=== PATIENT | male | born 1965 | race Caucasian/White ===

== ENCOUNTER → 2017-07-30 06:51 | Outpatient (CLI) | payer OTHER, SELFPAY ==
[2017-07-30 08:31] LABS: T4 Free Direct 0.93 ng/dL (0.76-1.46); T4 Total, Thyroxin 7.4 ug/dL (4.5-12.1); Thyroid Stim Hormone (TSH) 0.11 uIU/mL (0.358-3.74)
[2017-07-31 08:51] LABS: T3 Total - Triiodothyronine 1.19 ng/mL (0.6-1.81)
[2017-08-03 09:55] LABS: Testosterone, Free 10.73 ng/dL (5.00-21.00)
[2017-08-03 15:48] LABS: Testosterone, % Free 2.49 % (1.50-4.20); Testosterone, Total 431 ng/dL (264-916)
== END ==
PROVIDERS: Family Provider Chiropractor; PCP Chiropractor; Visit Provider Chiropractor
DX: R53.82 Chronic fatigue, unspecified (principal); E03.9 Hypothyroidism, unspecified
CPT/HCPCS: 36415; 84402; 84403; 84436; 84439; 84443; 84480

== ENCOUNTER → 2018-05-15 11:31 | Outpatient (CLI) | payer OTHER, SELFPAY ==
[2018-05-15 13:31] LABS: AST(SGOT) 33 U/L (15-37); Alanine Aminotransfer ALT/SGPT 66 U/L (16-61); Alkaline Phosphatase 53 U/L (45-117); Bilirubin, Direct 0.23 mg/dL (0.00-0.30); Cholesterol 111 mg/dL (200); Free T3 2.3 pg/mL (2.18-3.98); Globulin 3.8 g/dL (2.2-4.2); High Density Lipoprotein 58 mg/dL; Protein, Total 7.8 g/dL (6.4-8.2); T4 Free Direct 0.84 ng/dL (0.76-1.46); T4 Total, Thyroxin 7.9 ug/dL (4.5-12.1); Triglycerides 56 mg/dL; Very Low Density Lipoprotein 11 mg/dL (5-40)
== END ==
PROVIDERS: Referring Provider Chiropractor; Visit Provider Chiropractor
DX: E03.9 Hypothyroidism, unspecified (principal); K75.81 Nonalcoholic steatohepatitis (NASH)
CPT/HCPCS: 36415; 80061; 80076; 84436; 84439; 84443; 84481

== ENCOUNTER → 2018-08-09 10:29 | Outpatient (CLI) | payer OTHER, SELFPAY ==
[2018-08-09 11:48] LABS: AST(SGOT) 37 U/L (15-37); Alanine Aminotransfer ALT/SGPT 70 U/L (16-61); Albumin, Serum 4.1 g/dL (3.2-5.0); Alkaline Phosphatase 50 U/L (45-117); Bilirubin, Direct 0.26 mg/dL (0.00-0.30); Free T3 5.5 pg/mL (2.18-3.98); Globulin 3.5 g/dL (2.2-4.2); Protein, Total 7.6 g/dL (6.4-8.2); T4 Free Direct 2.12 ng/dL (0.76-1.46); T4 Total, Thyroxin 14.4 ug/dL (4.5-12.1); Thyroid Stim Hormone (TSH) 0.01 uIU/mL (0.358-3.74)
== END ==
PROVIDERS: Family Provider Chiropractor; PCP Chiropractor; Referring Provider Chiropractor; Visit Provider Chiropractor
DX: E03.9 Hypothyroidism, unspecified (principal); K76.0 Fatty (change of) liver, not elsewhere classified
CPT/HCPCS: 36415; 80076; 84436; 84439; 84443; 84481

== ENCOUNTER → 2019-06-10 16:08 | Outpatient (CLI) | payer OTHER, SELFPAY ==
[2019-06-10 16:54] LABS: Potassium 4.3 mmol/L (3.5-5.1); T4 Free Direct 0.91 ng/dL (0.76-1.46); T4 Total, Thyroxin 7.7 ug/dL (4.5-12.1)
== END ==
PROVIDERS: Family Provider Chiropractor; PCP Chiropractor; Visit Provider Chiropractor
DX: E03.9 Hypothyroidism, unspecified (principal); E06.3 Autoimmune thyroiditis
CPT/HCPCS: 36415; 83735; 84132; 84436; 84439; 84443; 84481

== ENCOUNTER → 2019-07-21 10:03 | Outpatient (CLI) | payer OTHER, SELFPAY ==
[2019-07-21 11:40] LABS: Free T3 2.6 pg/mL (2.18-3.98); T4 Total, Thyroxin 15.1 ug/dL (4.5-12.1); Thyroid Stim Hormone (TSH) 0.11 uIU/mL (0.358-3.74)
== END ==
PROVIDERS: PCP Chiropractor; Referring Provider Chiropractor; Visit Provider Chiropractor
DX: E03.9 Hypothyroidism, unspecified (principal)
CPT/HCPCS: 36415; 84436; 84439; 84443; 84481

== ENCOUNTER → 2019-10-14 12:54 | Outpatient (CLI) | payer OTHER, SELFPAY ==
[2019-10-14 15:36] LABS: Absolute Lymphocyte Count 1.41 X10^3/uL (0.83-4.51); Basophil# 0.02 X10^3/uL; Basophil% 0.4 % (0-1); Eosinophil# 0.07 X10^3/uL; Eosinophils% 1.4 % (0-5); Hematocrit 48.8 % (40-54); Hemoglobin 16.5 g/dL (13.0-16.5); Lymphocyte # 1.41 X10^3/ul (4.0); Lymphocyte % 28.4 % (19-41); Mean Corp Hgb Conc 33.8 g/dL (32-36); Mean Corpuscular Hgb 30.4 pg (27.0-32.0); Mean Corpuscular Volume 89.9 fL (80-94); Mean Platelet Vol. 9.2 fl (6.2-12.0); Monocyte# 0.43 X10^3/uL; Monocyte% 8.7 % (0-10); NRBC Flagged by Analyzer 0 % (0-5); Neutrophil # 3.03 X10^3/uL (2.7-7.7); Neutrophil % 60.9 % (47-70); Platelet Count 258 K/mm3 (150-450); RBC Distribution Width CV 11.5 % (11.6-14.6); RBC Distribution Width SD 37.2 fl (35.1-43.9); Red Blood Count 5.43 M/mm3 (4.6-6.2)
[2019-10-14 15:52] LABS: ALB/GLOB Ratio 1.1 RATIO (0.9-2.4); AST(SGOT) 17 U/L (15-37); Alanine Aminotransfer ALT/SGPT 22 U/L (16-61); Alkaline Phosphatase 51 U/L (45-117); Anion Gap 4 (5-15); BUN 8 mg/dL (7-18); BUN/Creat Ratio 9.1 RATIO (10-20); Calcium,Total 8.9 mg/dL (8.5-10.1); Chloride 105 mmol/L (98-107); Cholesterol 118 mg/dL (200); Creatinine, Serum 0.88 mg/dL (0.70-1.30); EST Glomerular Filtration Rate 97 mL/min (>60); Est Glom Filt Rate - Afr Amer 118 mL/min (>60); Free T3 2.3 pg/mL (2.18-3.98); Globulin 3.5 g/dL (2.2-4.2); Glucose 90 mg/dL (74-106); High Density Lipoprotein 82 mg/dL; Potassium 4.1 mmol/L (3.5-5.1); Protein, Total 7.5 g/dL (6.4-8.2); Sodium Level 139 mmol/L (136-145); T4 Free Direct 1.19 ng/dL (0.76-1.46); Thyroid Stim Hormone (TSH) 3.45 uIU/mL (0.358-3.74); Triglycerides 19 mg/dL; Very Low Density Lipoprotein 4 mg/dL (5-40)
[2019-10-16 17:21] LABS: Anti-Thyroglobulin AB < 1.0 IU/mL (0.0-0.9); Thyroglobulin, Serum Qt. 0.7 ng/mL (1.4-29.2); Thyroid Peroxidase AB 20 IU/mL (0-34)
== END ==
PROVIDERS: PCP Chiropractor; Referring Provider Chiropractor; Visit Provider Chiropractor
DX: E03.9 Hypothyroidism, unspecified (principal)
CPT/HCPCS: 36415; 80053; 80061; 84432; 84436; 84439; 84443; 84481; 85025; 86376; 86800

== ENCOUNTER 2024-05-16 15:15 | Emergency (ER) | payer OTHER, SELFPAY ==
[2024-05-16] VITALS (14 sets, daily range): BP systolic 122–151; BP diastolic 55–78; PULSE 81–112; RESP 12–18; TEMP 32.2–37.3; O2SAT 95–100; BMI 28.8
--- NOTE | 2024-05-16 15:34 | EKG12_ITS ---
Test Reason : ABD PAIN Blood Pressure : */* mmHG Vent. Rate : 96 BPM Atrial Rate : 96 BPM P-R Int : 134 ms QRS Dur : 86 ms QT Int : 358 ms P-R-T Axes : 55 22 52 degrees QTcB Int : 452 ms Normal sinus rhythm Nonspecific ST abnormality Abnormal ECG Confirmed by Ezio Willis ([id number]), editor publications VLADISLAV JOHN ([id number]) on 05/18/2024 11:37:07 AM Referred By: Antonio Tabor Confirmed By: Ezio Willis
--- NOTE | 2024-05-16 15:34 | CT_ITS ---
EXAM: CT Abdomen And Pelvis W/ Contrast Injection HISTORY: abd pain, gi bleed TECHNIQUE: Routine protocol CT abdomen pelvis. IV Contrast: IV 100mL Isovue-370 . Oral Contrast: without. Sagittal and coronal images were reconstructed. RADIATION DOSAGE (If Supplied By Facility): CTDIvol = ( 12.22 ) mGy, DLP = ( 961.21 ) mGycm Individualized dose optimization techniques were used for this CT. COMPARISON: None. LIMITATIONS: None. FINDINGS: LOWER CHEST: Unremarkable. LIVER: Fatty infiltration. GALLBLADDER/BILE DUCTS: Unremarkable. PANCREAS: Unremarkable. SPLEEN: Unremarkable. ADRENAL GLANDS: Unremarkable. KIDNEYS / URETERS: Several small calculi in both kidneys. No hydronephrosis. BOWEL / MESENTERY: Mild wall thickening 1st-2nd portion of the duodenum with adjacent stranding. There is a defect in the duodenal wall posteriorly duodenal bulb with localized collection, contains fluid and air measures 2.7 x 2.2 cm likely large ulcer, contained perforation difficult to exclude. Scattered diverticula in the colon. No bowel obstruction. APPENDIX: Identified and normal. No evidence of acute appendicitis. PERITONEUM: No free air. Small amount of free fluid in the pelvis. VESSELS: Abdominal aorta is normal caliber. RETROPERITONEUM: Unremarkable. REPRODUCTIVE ORGANS: Unremarkable. BLADDER: Unremarkable. ABDOMINAL WALL: Unremarkable. BONES: No acute abnormality. OTHER: None. CT/Abdomen/Pelvis W IV Cont ONLY IMPRESSION: Duodenal wall thickening with likely large duodenal ulcer at the posterior bulb versus contained perforation. Adjacent stranding. No pneumoperitoneum. Small amount of free fluid. Electronically Signed: Tabatha Martinez MD at 17:14 EST ,
--- NOTE | 2024-05-16 15:37 | ED.VIS.GI ---
HPI HPI - GI History of Present Illness Chief Complaint: Abd Pain Informant: patient and spouse/S.O. Narrative Narrative: Waxing waning mid abdominal pain for 3-4 days. 3 days ago noted diarrhea with black stools denies tarry stools. Prior to that had some vomiting that was not coffee-ground or any bright red blood. A week ago had dental procedure had regiment of being on scheduled ibuprofen for pain control. He had to stems placed right lower mandibular. Also on regimen of Tylenol with hydrocodone. Shortly after that noted the black stools. More abdominal pain. He has stopped the ibuprofen. In addition reported over the past month intermittent urine felt like he was passing stones. Has not been diagnosed with kidney stones. But he has had multiple episodes with vincent when he urinates. Last time 5 to 6 days ago. Denies dysuria. Denies fever or chills. No history of colonoscopy or endoscopy in the past. Has had Cologuard testing in the past. Spouse has been noticing changes in skin color. He has been noticing lightheaded symptoms over last couple days. No syncopal episodes. Decreased appetite. Has not had a bowel movement in 1 and half days. Prior similar symptoms: No PFSH PFSH Medical History (Updated 05/16/24 @ 20:[address] Antonio Tabor, DO) Nephrolithiasis Home Medications ?Medication ?Instructions ?Recorded ?Last Taken ?Type NK 05/16/24 Unknown History Allergy/AdvReac Type Severity Reaction Status Date / Time amoxicillin (From Augmentin) Allergy Vomiting Verified 05/16/24 15:19 azithromycin Allergy Abd Verified 05/16/24 15:19 cramps/diarrhea clavulanic acid (From Allergy Vomiting Verified 05/16/24 15:19 Augmentin) Family History (Updated 05/16/24 @ 17:[address] Eunice Jimenez MD) Mother No problems noted. Father No problems noted. Family History other Surgical History (Updated 05/16/24 @ 17:[address] Eunice Jimenez MD) History of dental surgery Social History (Updated 05/16/24 @ 17:[address] Eunice Jimenez MD) household members: spouse Smoking Status: Never smoker alcohol intake: never substance use type: does not use ROS ROS ED Constitutional Constitutional ED: Denies chills, fever(s) or sweats Eyes Eyes: Denies change in vision ENT ENT ED: Denies dysphagia or sore throat Cardiovascular Cardiovascular: Denies chest pain, leg edema, palpitations or racing heartbeat Respiratory/Chest Respiratory/Chest: Denies cough, dyspnea or dyspnea on exertion Gastrointestinal Gastrointestinal: Reports other Details: Loose black stools. No bloody stools. ; Denies abdominal pain, diarrhea, nausea or vomiting Genitourinary Genitourinary ED: Denies dysuria, hematuria or urinary frequency Musculoskeletal Musculoskeletal: Denies back pain, extremity pain or neck pain Integumentary Denies rash or wounds Neurologic Neurologic: Denies headache(s), paresthesias or weakness EXAM Physical Exam Const Vital Signs: 05/16/24 15:19 05/16/24 16:22 05/16/24 16:49 Temperature 97.8 F Temperature Source Temporal Pulse Rate 103 H 97 Pulse Rate [Lying] 90 Pulse Rate [Sitting (for 1 minute prior to obtaining)] 94 Pulse Rate [Standing (for 1 minute prior to obtaining)] 112 H Respiratory Rate 18 16 Blood Pressure 122/69 H 129/62 H Blood Pressure [Lying] 140/75 H Blood Pressure [Sitting (for 1 minute prior to obtaining)] 143/67 H Blood Pressure [Standing (for 1 minute prior to obtaining)] 129/62 H Blood Pressure Mean 86 84 Blood Pressure Mean [Lying] 96 Blood Pressure Mean [Sitting (for 1 minute prior to obtaining)] 92 Blood Pressure Mean [Standing (for 1 minute prior to obtaining)] 84 Blood Pressure Source Blood Pressure Position Blood Pressure Location Pulse Ox 99 97 Oxygen Delivery Method Room Air Room Air 05/16/24 17:29 05/16/24 17:40 05/16/24 17:55 Temperature 97.8 F 99.1 F 99 F Temperature Source Oral Oral Pulse Rate 99 94 92 Pulse Rate [Lying] Pulse Rate [Sitting (for 1 minute prior to obtaining)] Pulse Rate [Standing (for 1 minute prior to obtaining)] Respiratory Rate 16 16 12 Blood Pressure 139/73 H 139/73 H 139/73 H Blood Pressure [Lying] Blood Pressure [Sitting (for 1 minute prior to obtaining)] Blood Pressure [Standing (for 1 minute prior to obtaining)] Blood Pressure Mean 95 95 95 Blood Pressure Mean [Lying] Blood Pressure Mean [Sitting (for 1 minute prior to obtaining)] Blood Pressure Mean [Standing (for 1 minute prior to obtaining)] Blood Pressure Source Monitor Monitor Blood Pressure Position Semi-Fowlers Semi-Fowlers Blood Pressure Location Right Arm Right Arm Pulse Ox 96 95 100 Oxygen Delivery Method Room Air Room Air 05/16/24 18:12 05/16/24 18:20 05/16/24 18:35 Temperature 99 F 99 F 99.1 F Temperature Source Oral Oral Oral Pulse Rate 90 92 85 Pulse Rate [Lying] Pulse Rate [Sitting (for 1 minute prior to obtaining)] Pulse Rate [Standing (for 1 minute prior to obtaining)] Respiratory Rate 12 16 12 Blood Pressure 133/78 H 139/73 H 133/78 H Blood Pressure [Lying] Blood Pressure [Sitting (for 1 minute prior to obtaining)] Blood Pressure [Standing (for 1 minute prior to obtaining)] Blood Pressure Mean 96 95 96 Blood Pressure Mean [Lying] Blood Pressure Mean [Sitting (for 1 minute prior to obtaining)] Blood Pressure Mean [Standing (for 1 minute prior to obtaining)] Blood Pressure Source Monitor Monitor Monitor Blood Pressure Position Semi-Fowlers Semi-Fowlers Semi-Fowlers Blood Pressure Location Right Arm Right Arm Right Arm Pulse Ox 100 100 100 Oxygen Delivery Method Room Air Room Air Room Air 05/16/24 19:00 05/16/24 19:46 05/16/24 19:56 Temperature 99 F 99 F 89.9 F L Temperature Source Oral Oral Oral Pulse Rate 81 84 98 Pulse Rate [Lying] Pulse Rate [Sitting (for 1 minute prior to obtaining)] Pulse Rate [Standing (for 1 minute prior to obtaining)] Respiratory Rate 16 16 16 Blood Pressure 134/76 H 134/77 H 127/66 H Blood Pressure [Lying] Blood Pressure [Sitting (for 1 minute prior to obtaining)] Blood Pressure [Standing (for 1 minute prior to obtaining)] Blood Pressure Mean 95 96 86 Blood Pressure Mean [Lying] Blood Pressure Mean [Sitting (for 1 minute prior to obtaining)] Blood Pressure Mean [Standing (for 1 minute prior to obtaining)] Blood Pressure Source Monitor Monitor Blood Pressure Position Semi-Fowlers Supine Blood Pressure Location Right Arm Right Arm Pulse Ox 100 100 100 Oxygen Delivery Method Room Air Room Air Room Air 05/16/24 20:09 05/16/24 20:52 Temperature 99.1 F 99.1 F Temperature Source Oral Pulse Rate 87 82 Pulse Rate [Lying] Pulse Rate [Sitting (for 1 minute prior to obtaining)] Pulse Rate [Standing (for 1 minute prior to obtaining)] Respiratory Rate 16 18 Blood Pressure 151/55 H 127/66 H Blood Pressure [Lying] Blood Pressure [Sitting (for 1 minute prior to obtaining)] Blood Pressure [Standing (for 1 minute prior to obtaining)] Blood Pressure Mean 87 86 Blood Pressure Mean [Lying] Blood Pressure Mean [Sitting (for 1 minute prior to obtaining)] Blood Pressure Mean [Standing (for 1 minute prior to obtaining)] Blood Pressure Source Blood Pressure Position Blood Pressure Location Pulse Ox 100 99 Oxygen Delivery Method Room Air Positive well nourished and well developed General Appearance ED: well developed, NAD and pallor HEENT Reports moist mucous membranes normocephalic and atraumatic Eyes EOMs intact bilaterally and conjunctivae normal General Eye ED: Yes pale conjunctiva Neck no lymphadenopathy and supple General: Negative for tenderness Chest Wall Chest: Negative for tenderness Resp normal respiratory effort and normal air movement Effort and Inspection: symmetric chest movement; Negative for respiratory distress Cardio regular rhythm and no murmurs Rate: tachycardic Peripheral Pulses: pulses 2+ throughout GI normal to inspection, nondistended, normoactive bowel sounds GI Narrative: Negative Johnson's or McBurney's tenderness. Mild tenderness mid abdominal. Declines rectal exam. Palpation: Negative for guarding or rebound tenderness present Back/Spine no CVA tenderness and no thoracic nor lumbar tenderness Extremity normal to inspection General Extremety ED: Negative for edema or tenderness General Extremity: Negative for edema Neuro oriented x3 and no sensory deficits noted Sensorium / Orientation: awake and alert Skin General Skin Exam: pallor MDM MDM MDM Narrative Medical decision making narrative: Interventions / MDM: Differential diagnosis: Symptomatic anemia, upper GI bleed, duodenal ulcer with possible perforation Diagnosis considered but do not suspect: N/A My EKG interpretation: Sinus rhythm 96, no ST or T wave changes. QTc 452. Imaging independently reviewed and interpreted by myself: CT abdomen pelvis: Nephrolithiasis, large duodenal ulcer, possible contained perforation. External documents reviewed: N/A Test considered but not ordered:N/A ED course: Blood pressure stable slight tachycardia on arrival. Clinically concerns for severe anemia with symptoms of lightheadedness, will check EKG, labs with coags and type and screen. CT abdomen pelvis with contrast. IV Protonix ordered. Will plan on admission. 1630: Orthostatic positive from sitting to standing blood pressure and heart rate positive. Blood pressure maintained at 120. Hemoglobin trend 4.4. I sent for iron studies. I ordered for 3 units of blood to be transfused. Risk and benefits discussed with the patient and consent will be obtained. I spoke with minilab operator Dr. Avelar, agrees with workup this time. Plan for Protonix 40 mg every 6. He will need to have bowel prep. Plan for endoscopy tomorrow. 1655: CT scan on my review bilateral nephrolithiasis nonobstructing. No abdominal masses, no hyperdense fluid for concerns of any active bleed. Awaiting final read by radiology. Will discuss with hospitalist for admission. 1735: Final read from radiology concerns for a large duodenal ulcer 2.7 cm in size, they could not rule out contained per however there is stranding in the area. Hospitalist Dr. Jimenez was in the ED discussed the findings. We rediscussed with gastroenterology Dr. Avelar, also discussed with on-call surgeon Dr. Esposito. Per surgery due to duodenal location, discussed if symptoms progress into a perforation, he is unable to manage this surgically here. Therefore recommended transfer to capable facility. This was discussed with patient and spouse. Will work on transfer. Allergies to be amoxicillin part causing vomiting, cefotetan IV antibiotic ordered for coverage. Iron study results, ferritin of 5, TIBC 345, iron of 34. Folate 13. 1750: I discussed with [facility] transfer line with critical care team. Updated on the findings. They will reach out with their critical care team and surgery team to make sure that able to manage that there also. They will call back. 1810: [facility] after speaking with her surgeon also recommends tertiary center of [facility]. I spoke with transfer line and [facility], they will relay to their team and will call back. 1900: Brief callback from the transfer center who spoke with your general surgeon Dr. Michelle, would like patient transferred to the ED for surgical evaluation and disposition from there. I spoke with the ED physician Dr. Garza, discussed findings and concerns. Discussed blood is running blood pressure currently stable. Will transfer to the ED for further evaluation and management. Image studies will be pushed up to their facility. Patient and family updated. Re-evaluation: stable Disposition discussed with patient/family/significant other: Patient and family Case discussed with consulting clinician: Gastroenterology, hospitalist, general surgery, [facility] ED physician This note was generated with [email or web address] dictation software. It may contain incorrect words, spelling, and punctuation that were not noted in checking the note before signing. Lab Data Attestation: I reviewed the patient's lab results. Labs: Laboratory Results - last 24 hr 05/16/24 05/16/24 05/16/24 15:37 16:25 20:26 WBC 11.5 H RBC 1.50 L Hgb 4.4 L* Hct 13.8 L MCV 92.0 MCH 29.3 MCHC 31.9 L RDW Std Deviation 41.1 RDW Coeff of Gerry 12.1 Plt Count 427 MPV 8.4 Immature Gran % (Auto) 0.600 Neut % (Auto) 79.6 H Lymph % (Auto) 10.3 L [place] % (Auto) 9.1 Eos % (Auto) 0.3 Baso % (Auto) 0.1 Absolute Neuts (auto) 9.2 H Absolute Lymphs (auto) 1.19 Nucleated RBC % 0 Diff Path Review May foll PT 13.7 INR 1.1 APTT 29.3 Sodium 140 Potassium 3.4 L Chloride 108 H Carbon Dioxide 26.0 Anion Gap 7 BUN 9 Creatinine 0.78 Estim Creat Clear Calc 111.39 Est GFR (MDRD) Af Amer 131 Est GFR (MDRD) Non-Af 108 BUN/Creatinine Ratio 11.5 Glucose 127 H Calcium 8.3 L Iron 34 L TIBC 345 Iron Saturation 9.9 L Ferritin 5 L Total Bilirubin 0.30 AST 14 L ALT 15 L Alkaline Phosphatase 51 Total Protein 6.2 L Albumin 3.0 L Globulin 3.2 Albumin/Globulin Ratio 0.9 Lipase 48 Folate 13.20 Urine Color Yellow Urine Clarity Clear Urine pH 7.0 Ur Specific [place] 1.010 Urine Protein 15 H Urine Glucose (UA) Normal Urine Ketones 5 H Urine Occult Blood Negative Urine Nitrite Negative Urine Bilirubin Negative Urine Urobilinogen Normal Ur Leukocyte Esterase Negative Urine RBC 0 SEEN Urine WBC 0-5 SEEN Ur Squamous Epith Cells 0 SEEN Urine Bacteria 0 SEEN Urine Mucus 0 SEEN Blood Type O POSITIVE Antibody Screen NEGATIVE Crossmatch See Detail Radiography Diagnostic Testing: Clinical Impression(s) from Imaging Studies Abdomen/Pelvis CT 05/16/24 15:34 IMPRESSION: Duodenal wall thickening with likely large duodenal ulcer at the posterior bulb versus contained perforation. Adjacent stranding. No pneumoperitoneum. Small amount of free fluid. Electronically Signed: Tabatha Martinez MD at 17:14 EST , Critical Care Time Critical Care Time: Yes Critical care time (excluding procedures): 30-74 minutes, Discussing w/Patient &/or Family/Jailkeeper, Discussing w/Consultants, Arranging Admission or Transfer, Performing Direct Patient Care at Bedside and - (45 minutes) Discharge Plan Triage Chief Complaint: Abd Pain Other Complaint: Nausea/Vomiting/Diarrhea ED Provider: Antonio Tabor Dx/Rx/DC Orders Clinical Impression: Severe anemia, Symptomatic anemia, Upper GI bleed, Bilateral nephrolithiasis, Duodenal ulcer, Atrial fibrillation, chronic Prescriptions: No Action NK Primary Care Provider: Leticia Brito Referrals: Leticia Brito DC [Primary Care Provider] - Print Language: Citizen Of [place] Disposition Disposition: DC/Tx to Another Type of HCF Discharge Location: [facility] Discharge Date/Time: 05/16/24 21:44
[2024-05-16 15:57] LABS: Absolute Lymphocyte Count 1.19 X10^3/uL (0.83-4.51); Absolute Neutrophil Count 9.2 X10^3/uL (2.0-7.7); Basophil# 0.01 X10^3/uL; Basophil% 0.1 % (0-1); Eosinophil# 0.04 X10^3/uL; Eosinophils% 0.3 % (0-5); Hematocrit 13.8 % (40-54); Lymphocyte # 1.19 X10^3/ul (0.83-4.51); Lymphocyte % 10.3 % (19-41); Mean Corp Hgb Conc 31.9 g/dL (32-36); Mean Corpuscular Hgb 29.3 pg (27.0-32.0); Mean Platelet Vol. 8.4 fl (6.2-12.0); Monocyte# 1.05 X10^3/uL; Monocyte% 9.1 % (0-10); NRBC Flagged by Analyzer 0 % (0-5); Neutrophil # 9.18 X10^3/uL (2.7-7.7); Neutrophil % 79.6 % (47-70); POSITIVE COUNT YES; Platelet Count 427 K/mm3 (150-450); RBC Distribution Width CV 12.1 % (11.6-14.6); RBC Distribution Width SD 41.1 fl (35.1-43.9); White Blood Count 11.5 K/mm3 (4.4-11.0)
[2024-05-16] MEDS: Pantoprazole Sodium 80 MG in 0.9% Normal Saline (50mL Bag) 15 ML 420 MG IV BOLUS (15:59)
[2024-05-16] MEDS: Ondansetron 4 MG/2 ML Vial IV (16:05)
[2024-05-16 16:09] LABS: International Normalized Ratio 1.1; Prothrombin Time (Protime)PT. 13.7 SECONDS (11.7-14.9)
[2024-05-16 16:10] LABS: Partial Thromboplast Time 29.3 Seconds (24.1-36.2)
[2024-05-16 16:12] LABS: Differential Indicated SCAN CRITERIA MET; Hemoglobin 4.4 g/dL (13.0-16.5)
[2024-05-16 16:22] LABS: ALB/GLOB Ratio 0.9 RATIO (0.9-2.4); AST(SGOT) 14 U/L (15-37); Alanine Aminotransfer ALT/SGPT 15 U/L (16-61); Alkaline Phosphatase 51 U/L (45-117); Anion Gap 7 (5-15); BUN 9 mg/dL (7-18); BUN/Creat Ratio 11.5 RATIO (10-20); Calcium,Total 8.3 mg/dL (8.5-10.1); Chloride 108 mmol/L (98-107); Creatinine, Serum 0.78 mg/dL (0.70-1.30); EST Glomerular Filtration Rate 108 mL/min (>60); Est Glom Filt Rate - Afr Amer 131 mL/min (>60); Estimated Creatinine Clearance 111.39 ml/min; Globulin 3.2 g/dL (2.2-4.2); Glucose 127 mg/dL (74-106); Lipase 48 U/L (13-75); Potassium 3.4 mmol/L (3.5-5.1); Protein, Total 6.2 g/dL (6.4-8.2); Sodium Level 140 mmol/L (136-145)
[2024-05-16] MEDS: fentaNYL 100 MCG/2 ML Ampul 50 MCG IV (16:53)
--- NOTE | 2024-05-16 17:05 | PCM.HP.STD ---
HPI - General General Date of Admission: 05/16/24 Date of Service: 05/16/24 Chief Complaint: Abdominal pain, N/V, black stools, recent heavy NSAID usage. HPI Narrative The patient is a 59 y/o M w/ no marked PMHx not on any medications routinely with no PCP he notes however presents to the [facility] ED on 05/16/24 with history of ongoing mid abdominal discomfort which has been waxing and waning over the last 3 to 4 days with onset of diarrhea 3 days ago noted to be black in appearance but not specifically tarry with history of a dental procedure a week ago and following this had been on a scheduled regimen of ibuprofen (reports possibly 500 mg q 4-6 hours x 4 days until stopped) as well as Tylenol and hydrocodone probably eventual ED evaluation. He did states when he started having black stools he did stop the ibuprofen. He also notes a history of multiple episodes where he felt as though he passed small kidney stones with the last was 5 to 6 days prior to current presentation but no associated dysuria or fevers or chills. Patient spouse has been concerned about abnormal skin color change. He also has reported some lightheadedness over the last couple days and decreased appetite. He notes that his last bowel movement has been 1.5 days prior. He describes the pain in his abdomen as if something is trying to clot out his insides. He notes that he is only had a handful of applesauce pouches over the last 2 days. Workup in the ED included T97.8, heart rate 103, BP 122/69, respiratory rate 18, 99% on room air, orthostatics with a change in heart rate from 90-1 12 and blood pressure change from 140-129 with similar diastolics, CBC with WBC 11.5, hemoglobin 4.4, MCV 92, platelet 427 with left shift, unremarkable coags, CMP with potassium 3.4, chloride 108, glucose 127, calcium 8.3, AST/ALT 14/15, total bilirubin 0.30 otherwise hepatic profile not marked appearing, lipase 48, type and cross x 3 unit PRBC initiated in the ED, EKG with sinus rhythm with no acute evidence of ischemia, QTc 452, CT abdomen pelvis with IV contrast pending upon requested evaluation of patient's. In the ED patient administered Zofran 4 mg IV x 1 as well as Protonix 80 mg IV bolus x 1. ED physician also ordered ferritin, folic acid, iron, TIBC, stool occult, vitamin B12. Dr. Avelar Gastroenterology discussed case with ED physician and requested lower GI prep. Discussed with ED physician that would await CT scan results to assure no acute tertiary facility needs but otherwise patient will require ICU admission based on hemoglobin level. Also requested that ED physician discussed alcohol use with patient and if he is an alcoholic that he be administered prophylactic antibiotic therapy in the setting of GI bleed as well. [facility] Medical History (Updated 05/16/24 @ 17:[address] Eunice Jimenez MD) Nephrolithiasis Home Medications ?Medication ?Instructions ?Recorded ?Last Taken ?Type NK 05/16/24 Unknown History Allergy/AdvReac Type Severity Reaction Status Date / Time amoxicillin (From Augmentin) Allergy Vomiting Verified 05/16/24 15:19 azithromycin Allergy Abd Verified 05/16/24 15:19 cramps/diarrhea clavulanic acid (From Allergy Vomiting Verified 05/16/24 15:19 Augmentin) Family History (Updated 05/16/24 @ 17:[address] Eunice Jimenez MD) Mother No problems noted. Father No problems noted. other (Denies any marked maternal or paternal family history, notes they passed of old age only.) Surgical History (Updated 05/16/24 @ 17:[address] Eunice Jimenez MD) History of dental surgery Social History (Updated 05/16/24 @ 17:[address] Eunice Jimenez MD) household members: spouse Smoking Status: Never smoker alcohol intake: never substance use type: does not use ROS ROS Narrative Admission Review of Systems: CONSTITUTIONAL: No weight loss, fever, chills, + weakness or fatigue. HEENT: + LH/dizziness. Eyes: No visual loss, blurred vision, double vision or yellow sclerae. Ears, Nose, Throat: No hearing loss, sneezing, congestion, runny nose or sore throat. SKIN: No rash or itching, lesions, wounds except + pale color. CARDIOVASCULAR: No chest pain, chest pressure or chest discomfort, palpitations, edema, orthopnea, syncopal events. RESPIRATORY: + Dyspnea with exertion. No cough or sputum, wheezing, hemoptysis. GASTROINTESTINAL: + Epigastric discomfort/abdominal pain, nausea, emesis, loose stools, stools black in appearance. No BRBPR. GENITOURINARY: + Reports occasional past possible calculi. No dysuria, frequency, urgency or retention. NEUROLOGICAL: No headache, dizziness, syncope, paralysis, ataxia, numbness or tingling in the extremities, focal weakness, change in bowel or bladder control, seizure. MUSCULOSKELETAL: + muscle, back pain, joint pain or stiffness. HEMATOLOGIC: + Acute anemia noted, describes evidence of bleeding. LYMPHATICS: No enlarged nodes. No history of splenectomy. PSYCHIATRIC: No history of depression or anxiety. ENDOCRINOLOGIC: No reports of sweating, cold or heat intolerance. No polyuria or polydipsia. ALLERGIES: No history of asthma, hives, eczema or rhinitis. Vital Signs Vital Signs Vital Signs: 05/16/24 15:19 05/16/24 16:22 05/16/24 16:49 Temperature 97.8 F Temperature Source Temporal Pulse Rate 103 H 97 Pulse Rate [Lying] 90 Pulse Rate [Sitting (for 1 minute prior to obtaining)] 94 Pulse Rate [Standing (for 1 minute prior to obtaining)] 112 H Respiratory Rate 18 16 Blood Pressure 122/69 H 129/62 H Blood Pressure [Lying] 140/75 H Blood Pressure [Sitting (for 1 minute prior to obtaining)] 143/67 H Blood Pressure [Standing (for 1 minute prior to obtaining)] 129/62 H Blood Pressure Mean 86 84 Blood Pressure Mean [Lying] 96 Blood Pressure Mean [Sitting (for 1 minute prior to obtaining)] 92 Blood Pressure Mean [Standing (for 1 minute prior to obtaining)] 84 Pulse Ox 99 97 Oxygen Delivery Method Room Air Room Air Weight Weight: 189 lb 3.2 oz Body Mass Index (BMI) 28.8 Physical Exam Narrative Physical Examination: General: Awake, alert, oriented x 3 and cooperative, seated upright in the ED bed, pale, evident discomfort, notes he feels as though still his abdomen is being clot out. Skin: Pale color, normal turgor, no icterus, no cyanosis. HEENT: AT/NC, EOMI, PERRLA, mildly dry MM, no carotid bruits or JVD noted. Lungs: CTA bilaterally, moderate effort, mild decrease BL bases, no rales, ronchi or wheezing. Heart: Mildly tachycardic with regular rhythm; no gallop, rub audible. Abdomen: Soft, discomfort to the epigastric and bilateral upper quadrant palpation with no rebound or guarding, nondistended, hyperactive BS, no appreciated HSM. Extremities: No cyanosis, clubbing, or edema. Neurological: Patient awake, alert, oriented as noted, cognitive function intact; pupils equally reactive to light and accommodation, cranial nerves grossly normal, moving all 4 extremities, no focal deficits, strength severely globally decreased secondary to acute presentation complaints Psychiatric: Affect appears flat, fatigued, no acute evidence of depressive or anxiety feelings. Results Lab / Micro Data 05/16/24 15:37 05/16/24 15:37 Labs: Laboratory Results - last 24 hr 05/16/24 15:37: WBC 11.5 H, RBC 1.50 L, Hgb 4.4 L*, Hct 13.8 L, MCV 92.0, MCH 29.3, MCHC 31.9 L, RDW Std Deviation 41.1, RDW Coeff of Gerry 12.1, Plt Count 427, MPV 8.4, Immature Gran % (Auto) 0.600, Neut % (Auto) 79.6 H, Lymph % (Auto) 10.3 L, [place] % (Auto) 9.1, Eos % (Auto) 0.3, Baso % (Auto) 0.1, Absolute Neuts (auto) 9.2 H, Absolute Lymphs (auto) 1.19, Nucleated RBC % 0, PT 13.7, INR 1.1, APTT 29.3, Sodium 140, Potassium 3.4 L, Chloride 108 H, Carbon Dioxide 26.0, Anion Gap 7, BUN 9, Creatinine 0.78, Estim Creat Clear Calc 111.39, Est GFR (MDRD) Af Amer 131, Est GFR (MDRD) Non-Af 108, BUN/Creatinine Ratio 11.5, Glucose 127 H, Calcium 8.3 L, Total Bilirubin 0.30, AST 14 L, ALT 15 L, Alkaline Phosphatase 51, Total Protein 6.2 L, Albumin 3.0 L, Globulin 3.2, Albumin/Globulin Ratio 0.9, Lipase 48, Blood Type O POSITIVE, Antibody Screen NEGATIVE Assessment & Plan Assessment/Plan (1) GI bleed: PLAN: Plan The patient is a 59 y/o M w/ no marked PMHx not on any medications routinely with no PCP he notes however presents to the [facility] ED on 05/16/24 with history of ongoing mid abdominal discomfort which has been waxing and waning over the last 3 to 4 days with onset of diarrhea 3 days ago noted to be black in appearance but not specifically tarry with history of a dental procedure a week ago and following this had been on a scheduled regimen of ibuprofen (reports possibly 500 mg q 4-6 hours x 4 days until stopped) as well as Tylenol and hydrocodone probably eventual ED evaluation. #1. Acute GI Bleed w/ resultant Acute Blood Loss Anemia with LH/Dizziness following recent significant serial ingestion of NSAIDs following dental procedure for pain treatment: Given hemoglobin level per facility protocol if CT abdomen pelvis does not demonstrate any acute findings that would necessitate transfer to a tertiary facility would plan to admit to the ICU, would plan to consult pathology laboratory director and consult gastroenterology, n.p.o. status, continue PRBC type and cross order initiated per ED physician and will also maintain on IVFs, will continue to obtain serial H+H assessment, will maintain on continuous Protonix drip, maintain on fall precautions. #2. Hypokalemia: Admission K+ 3.4, magnesium level requested, supplementation given, repeat level in AM. #3. Hyperglycemia, mild: Admission glucose 127, suspect likely stress response, if repeat levels are concerning will obtain hemoglobin A1c at that time. #4. Questionable nephrolithiasis: Patient reports history of passing stones, describes as small vincent when he urinates, given he is not any severe pain we will continue to monitor only at this time especially given #1. #5. DVT prophylaxis: SCDs. #6. CODE STATUS: Full code. Charges/Coding Visit Charges Inpatient E&M: 35269 Init Hosp L3
[2024-05-16 17:22] LABS: Ferritin 5 ng/mL (26-388); Iron 34 ug/dL (65-175); Iron Binding Capacity,Total 345 ug/dL (250-450); PERCENT IRON SATURATION 9.9 % (15.0-55.0)
[2024-05-16] MEDS: Morphine 4 MG/ML Syringe IV (17:52)
[2024-05-16] MEDS: Cefotetan 2 GM in 0.9% Normal Saline (100mL MB+) 100 ML IV (17:52)
--- NOTE | 2024-05-16 20:11 | NURSING ---
Report called to Onel Mendoza
[2024-05-16 20:32] LABS: Bacteria 0 SEEN /hpf (None Seen); Mucous, Urine 0 SEEN /hpf (<or=2+); Red Blood Cells-Urine 0 SEEN /hpf (0-5); Squamous Epithelial Cells - UA 0 SEEN /hpf (0-5)
[2024-05-16 20:33] LABS: Color, Urine Yellow (Yellow); Glucose, Dipstick Normal (Normal); Ketone-Dipstick 5 mg/dl (Negative); Leukocyte Esterase-Dipstick Negative /ul (Negative); Nitrite-Dipstick Negative (Negative); Occult Blood-Urine Negative /ul (Negative); Protein-Dipstick 15 mg/dl (Negative); Urine Bilirubin Dipstick Negative (Negative); Urine Clarity Clear (Clear); Urine Urobilinogen Normal (Normal)
[2024-05-16 20:40] LABS: White Blood Cells 0-5 SEEN /hpf (0-5)
--- NOTE | 2024-05-16 21:05 | NURSING ---
Physicians transport team here. Report given.
[2024-05-18 13:46] LABS: Vitamin B12 619 pg/mL (211-911)
[2024-05-18 13:52] LABS: Pathologist Review Reviewed
== END 2024-05-16 21:44 | disposition short-term general hospital (02) ==
PROVIDERS: Emergency Provider Emergency Medicine; PCP Chiropractor; Referring Provider Emergency Medicine; Visit Provider Emergency Medicine
DX: K26.4 Chronic or unspecified duodenal ulcer with hemorrhage (principal); I48.20 Chronic atrial fibrillation, unspecified; D62 Acute posthemorrhagic anemia; N20.0 Calculus of kidney; R19.7 Diarrhea, unspecified; R11.2 Nausea with vomiting, unspecified; E87.6 Hypokalemia; R73.9 Hyperglycemia, unspecified
CPT/HCPCS: 36430; 74177; 80053; 81001; 82607; 82728; 82746; 83540; 83550; 83690; 85025; 85610; 85730; 86850; 86900; 86901; 86920; 93005; 96365; 96375; 99285; J7040; P9016; Q9967; A4216; J2405; J3490

== ENCOUNTER 2024-10-22 19:47 | Inpatient (IN) | payer OTHER, SELFPAY ==
[2024-10-22] VITALS (21 sets, daily range): BP systolic 97–115; BP diastolic 56–65; PULSE 73–106; RESP 11–19; TEMP 36.4–36.9; O2SAT 91–100; BMI 29.9
[2024-10-22] MEDS: 0.9% Normal Saline (1000mL) 1,000 ML 999 ML IV (20:16)
[2024-10-22] MEDS: Ondansetron 4 MG/2 ML Vial IV (20:38)
--- NOTE | 2024-10-22 20:43 | RAD_ITS ---
PROCEDURE: CHEST 1 VIEW (PORTABLE) 10/22/2024 REASON FOR EXAM: CHEST PAIN TECHNIQUE: Frontal view of the chest. COMPARISON: None FINDINGS: Heart: The heart size is normal. Lungs: The lungs are clear. No pleural effusion. Bones: The bones are unremarkable. RAD/Chest 1 View (Portable) IMPRESSION: No acute cardiopulmonary abnormality. Reading Location: [id number]
[2024-10-22] MEDS: 0.9% Normal Saline (1000mL) 1,000 ML 150 ML IV (20:50)
[2024-10-22 20:56] LABS: ALB/GLOB Ratio 1.7 RATIO (0.9-2.4); AST(SGOT) 19 U/L (<=37); Alanine Aminotransfer ALT/SGPT 9 U/L (<=46); Albumin, Serum 3.6 g/dL (3.5-5.0); Alkaline Phosphatase 49 U/L (40-129); Anion Gap 18 (5-15); BUN 30 mg/dL (4-19); BUN/Creat Ratio 21.4 RATIO (10-20); Calcium,Total 8.6 mg/dL (7.6-11.0); Carbon Dioxide 15.6 mmol/L (21.0-32.0); Chloride 100 mmol/L (98-108); Creatinine, Serum 1.39 mg/dL (0.70-1.20); EST Glomerular Filtration Rate 59 (>60); Globulin 2.1 g/dL (2.2-4.2); Glucose 167 mg/dL (70-99); Potassium 3.1 mmol/L (3.3-5.1); Protein, Total 5.8 g/dL (5.9-8.4); Sodium Level 133 mmol/L (133-145); Total Bilirubin 0.84 mg/dL (0.00-1.30)
[2024-10-22 21:01] LABS: Lactic Acid 3.5 mmol/L (0.0-2.0)
[2024-10-22 21:02] LABS: Absolute Lymphocyte Count 1.62 X10^3/uL (0.83-4.51); Absolute Neutrophil Count 4.8 X10^3/uL (2.0-7.7); Basophil# 0.03 X10^3/uL; Basophil% 0.4 % (0-1); Eosinophil# 0.04 X10^3/uL; Eosinophils% 0.5 % (0-5); Hematocrit 17.3 % (40-54); Lymphocyte # 1.62 X10^3/ul (0.83-4.51); Lymphocyte % 22.2 % (19-41); Mean Corp Hgb Conc 28.3 g/dL (32-36); Mean Corpuscular Hgb 19.6 pg (27.0-32.0); Mean Corpuscular Volume 69.2 fL (80-94); Mean Platelet Vol. 9.6 fl (6.2-12.0); Monocyte# 0.74 X10^3/uL; Monocyte% 10.1 % (0-10); NRBC Flagged by Analyzer 0.3 % (0-5); Neutrophil # 4.81 X10^3/uL (2.7-7.7); Neutrophil % 65.8 % (47-70); POSITIVE COUNT YES; Platelet Count 419 K/mm3 (150-450); RBC Distribution Width CV 18.1 % (11.6-14.6); RBC Distribution Width SD 44.7 fl (35.1-43.9); White Blood Count 7.3 K/mm3 (4.4-11.0)
[2024-10-22 21:08] LABS: Hemoglobin 4.9 g/dL (13.0-16.5)
[2024-10-22 21:14] LABS: Troponin T High Sensitivity 18 ng/L (<=22)
[2024-10-22] MEDS: Pantoprazole Sodium 80 MG in 0.9% Normal Saline (50mL Bag) 15 ML 420 MG IV BOLUS (21:16)
[2024-10-22] MEDS: Pantoprazole Sodium 80 MG in 0.9% Normal Saline (100mL Bag) 80 ML 10 MG CONT INF (21:30)
--- NOTE | 2024-10-22 21:38 | EDS_ITS ---
HPI History of Present Illness Chief Complaint: Nausea/Vomiting Informant: patient, spouse/S.O. and family Narrative Narrative: 59-year-old male presenting to the emergency room following a syncopal/near syncopal episode. Patient states that he returned home from [place] about 3 weeks ago and has had vomiting since. He thought perhaps he had contracted an illness while he was there. He has been noting some discomfort in his epigastrium that feels like last when he thinks about eating and tries to eat. He states that today he vomited and had blood. He was riding with his son when he had an episode of passing out. He notes that his stool started to look black today. Patient notes no fevers. He does report that last fall he was seen at [facility] Where he underwent endoscopy and was found to have a duodenal ulcer. He was discharged home on what sounds like Protonix. He does state he took a Protonix last night and he did feel better in his epigastrium. He made mention to his today that his heart rate seemed fast. [facility] Medical History Bleeding ulcer Nephrolithiasis Home Medications ?Medication ?Instructions ?Recorded ?Last Taken ?Type NK 05/16/24 Unknown History Allergy/AdvReac Type Severity Reaction Status Date / Time amoxicillin (From Augmentin) Allergy Vomiting Verified 10/22/24 19:48 azithromycin Allergy Abd Verified 10/22/24 19:48 cramps/diarrhea clavulanic acid (From Allergy Vomiting Verified 10/22/24 19:48 Augmentin) Family History Mother No problems noted. Father No problems noted. Surgical History History of dental surgery Social History household members: spouse Smoking Status: Never smoker alcohol intake: never substance use type: does not use ROS ROS ED Constitutional Constitutional ED: Denies chills, fever(s) or weight loss Eyes Eyes: Denies change in vision or diplopia ENT ENT ED: Denies ear pain, rhinorrhea or sore throat Cardiovascular Cardiovascular: Reports racing heartbeat and other Details: Syncope ; Denies chest pain, orthopnea or palpitations Respiratory/Chest Respiratory/Chest: Reports other; Denies cough, dyspnea or orthopnea Gastrointestinal Gastrointestinal: Reports abdominal pain, nausea, vomiting and other Details: Dark stool ; Denies diarrhea Genitourinary Genitourinary ED: Denies dysuria, hematuria or urinary frequency Musculoskeletal Musculoskeletal: Denies arthralgias or myalgias Integumentary Denies abscess or rash Neurologic Neurologic: Denies headache(s) or weakness Psychiatric Psychiatric: Denies anxiety, depression, suicidal ideation or suicidal thoughts Endocrine Endocrinology: Denies polydipsia, polyphagia or polyuria Allergic/Immunologic Allergic/Immunologic ED: Denies mouth swelling, tongue swelling or urticaria EXAM Physical Exam Const Vital Signs: 10/22/24 19:49 10/22/24 20:09 10/22/24 20:09 Temperature 97.6 F L Temperature Source Oral Pulse Rate 106 H Respiratory Rate 18 Blood Pressure 97/59 L Blood Pressure Mean 71 Pulse Ox 100 100 Oxygen Delivery Method Room Air Room Air Room Air 10/22/24 20:35 10/22/24 20:45 10/22/24 21:00 Temperature Temperature Source Pulse Rate 81 84 80 Respiratory Rate 14 15 16 Blood Pressure 113/65 103/59 L Blood Pressure Mean 78 73 Pulse Ox 99 Oxygen Delivery Method 10/22/24 21:15 10/22/24 21:17 10/22/24 21:30 Temperature 97.6 F L Temperature Source Oral Pulse Rate 86 85 82 Respiratory Rate 19 H 14 16 Blood Pressure 115/56 L 115/56 L 112/63 Blood Pressure Mean 73 75 75 Pulse Ox 100 100 99 Oxygen Delivery Method Room Air 10/22/24 21:45 10/22/24 22:00 10/22/24 22:15 Temperature Temperature Source Pulse Rate 80 87 82 Respiratory Rate 17 17 14 Blood Pressure 113/63 Blood Pressure Mean 78 Pulse Ox 99 Oxygen Delivery Method Positive well nourished and well developed General Appearance ED: well developed, NAD and pallor HEENT Reports normocephalic, head/scalp atraumatic and moist mucous membranes Eyes PERRL and EOMs intact bilaterally General Eye ED: Yes pale conjunctiva Neck no lymphadenopathy, supple and no JVD Resp normal respiratory effort and clear to auscultation bilaterally Cardio regular rate, regular rhythm and no murmurs GI normal to inspection, nondistended, normoactive bowel sounds and non-tender Palpation: soft Back/Spine no CVA tenderness and normal ROM Extremity normal to inspection General Extremety ED: Negative for edema General Extremity: Negative for edema Neuro oriented x3 and CN's II-XII intact bilaterally Sensorium / Orientation: alert Motor Exam: strength 5/5 throughout Psych mental status grossly normal Mood & Affect: Negative for depressed or tearful Skin no rashes or lesions noted and no wounds General Skin Exam: pallor MDM MDM MDM Narrative Medical decision making narrative: Differential diagnosis includes gastritis Lola-Dwyer tear gastric ulcer duodenal ulcer hypovolemia acute blood loss anemia hypovolemic shock acute kidney injury NSTEMI electrolyte abnormalities EKG was obtained which demonstrates a normal sinus rhythm at a rate of 83 bpm. My independent interpretation of the chest x-ray is no acute process. Specifically no obvious free air under the diaphragm. He white count 7.3 hemoglobin is 4.9 platelet count of 419. Potassium noted to be 3.1 BUN of 30 with a creatinine of 1.39 which is elevated from his baseline. Anion gap is 18 CO2 is 15.6. Lactic acid is elevated at 3.5 with a glucose of 167. Normal LFTs . Troponin is 18. Patient received IV fluids was placed on Protonix bolus and drip and given potassium. He was typed and crossed for 3 units. I spoke with on-call gastroenterology as well as the hospitalist plan of care is admission to the hospital. Hospitalist wishes a CT of the abdomen pelvis. History & Record Review Discussion w/independent historian: Patient, Family and Significant other Additional record(s) reviewed:: Prior ED visit and Prior labs Lab Data Attestation: I reviewed the patient's lab results. Labs: Laboratory Results - last 24 hr 10/22/24 10/22/24 20:08 20:24 WBC 7.3 RBC 2.50 L Hgb 4.9 L* Hct 17.3 L MCV 69.2 L MCH 19.6 L MCHC 28.3 L RDW Std Deviation 44.7 H RDW Coeff of Gerry 18.1 H Plt Count 419 MPV 9.6 Immature Gran % (Auto) 1.000 H Neut % (Auto) 65.8 Lymph % (Auto) 22.2 [place] % (Auto) 10.1 H Eos % (Auto) 0.5 Baso % (Auto) 0.4 Absolute Neuts (auto) 4.8 Absolute Lymphs (auto) 1.62 Nucleated RBC % 0.3 Sodium 133 Potassium 3.1 L Chloride 100 Carbon Dioxide 15.6 L Anion Gap 18 H BUN 30 H Creatinine 1.39 H Estim Creat Clear Calc 65.70 Est GFR (MDRD) Non-Af 59 L BUN/Creatinine Ratio 21.4 H Glucose 167 H Lactic Acid 3.5 H* Calcium 8.6 Total Bilirubin 0.84 AST 19 ALT 9 Alkaline Phosphatase 49 Troponin T High Sens 18 Total Protein 5.8 L Albumin 3.6 Globulin 2.1 L Albumin/Globulin Ratio 1.7 Lipase 31 Blood Type O POSITIVE Antibody Screen NEGATIVE Crossmatch See Detail Radiography Diagnostic Testing: Clinical Impression(s) from Imaging Studies Chest X-Ray 10/22/24 20:43 IMPRESSION: No acute cardiopulmonary abnormality. Reading Location: [facility] EK Initial EKG: Attestation: I personally reviewed and interpreted this EKG as follows: Comments: Normal sinus rhythm ventricular rate of 83 bpm Management Discussion w/another healthcare provider: Hospitalist (Dr Hoffman) and Marriage Performer (Dr Avelar) Critical Care Time Critical Care Time: Yes Critical care time (excluding procedures): 30-74 minutes (35 min), Including time spent:, Discussing w/Patient &/or Family/Legal Service Specialist, Discussing w/Consultants, Arranging Admission or Transfer and Performing Direct Patient Care at Bedside Discharge Plan Dx/Rx/DC Orders Clinical Impression: GI bleed, Hypovolemic shock, EDGAR (acute kidney injury), Acute hypokalemia Disposition Disposition: Acute Care [facility]
[2024-10-22 21:39] LABS: Lipase 31 U/L (13-75)
--- NOTE | 2024-10-22 21:56 | PCM.HP.STD ---
[facility] - General General Date of Admission: 10/22/24 Date of Service: 10/22/24 Chief Complaint: Nausea, Vomiting with Hematemesis, Black Stools and Syncope. HPI Narrative MICHI CORREA, is a 59 M with a past medical history of obesity; BMI of 30 this admission, history of GI bleed due to PUD suspected to be related to NSAID overuse - initially admitted here before transferring to tertiary care center (04/2024); s/p endoscopy at [facility] last Fall with patient subsequently prescribed pantoprazole (which he had not been taking), history of nephrolithiasis and recent trip to [place] which she returned from ~3 weeks ago with nausea and vomiting since that time who presents to [facility] ER complaining of nausea, vomiting with hematemesis, black stools and syncope. Mr. Correa reports his symptoms began ~3 weeks with patient suspecting he may have contracted an illness while he was in [place]. He took his PPI last night and did have some modest improvement with this epigastric discomfort. Then today he had been noting worsening discomfort in his epigastrium with nausea that was initially bilious but then earlier today had joseph hematemesis. He then also had a bowel movement that was black. He then was riding in a car with his son when he had a syncopal episode. He admits to heart racing and abdominal pain. He denies associated fever, chills, weight loss, visual changes, runny nose, sore throat, ear pain, shortness of breath, cough, dysuria, hematuria, urinary frequency, arthralgias, myalgias, headache or rash. In the ER he was noted to have a severely low hemoglobin of 4.9 g/dL present on admission consistent with Acute Blood Loss Anemia requiring transfusion with clinical evidence of Hypovolemic Shock complicated by laboratory evidence of Lactic Acidosis of 3.5 mmol/L and Hypokalemia of 3.1 mmol/L both present on admission with CT scan of the abdomen and pelvis pending at this time. He was then admitted to the ICU for ongoing care for stay that is expected to extend beyond 2 midnights. [facility] Medical History Bleeding ulcer Nephrolithiasis Home Medications ?Medication ?Instructions ?Recorded ?Last Taken ?Type pantoprazole 20 mg tablet,delayed 20 mg PO DAILY STOMACH ACID 10/22/24 10/22/24 History release (Protonix) Allergy/AdvReac Type Severity Reaction Status Date / Time amoxicillin (From Augmentin) Allergy Vomiting Verified 10/22/24 19:48 azithromycin Allergy Abd Verified 10/22/24 19:48 cramps/diarrhea clavulanic acid (From Allergy Vomiting Verified 10/22/24 19:48 Augmentin) Family History Mother No problems noted. Father No problems noted. Surgical History History of dental surgery Social History household members: spouse Smoking Status: Never smoker alcohol intake: never substance use type: does not use ROS ROS Narrative Review of Systems: Constitutional: Patient denies fever, chills or weight loss. Eyes: Patient denies changes in vision or discharge from eyes. ENT: Patient denies runny nose, sore throat or ear pain. Resp: Patient denies shortness of breath or cough. CV: Patient admits to syncopal episode and racing heartbeat but he denies chest pain or palpitations. GI: Patient admits to abdominal pain with nausea and hematemesis plus melena as per HPI. : Patient denies dysuria or hematuria. MSK: Patient denies arthralgias or myalgias. Skin: Patient denies rash, abscess, wounds or jaundice. Psych: Patient denies symptoms of uncontrolled depression or anxiety. Neuro: Patient denies headache, paresthesias or focal neurologic deficits. Allergy: Patient denies lip swelling, tongue swelling or urticaria. Hematology: Vital Signs Vital Signs Vital Signs: 10/22/24 19:49 10/22/24 20:09 10/22/24 20:09 Temperature 97.6 F L Temperature Source Oral Pulse Rate 106 H Respiratory Rate 18 Blood Pressure 97/59 L Blood Pressure Mean 71 Pulse Ox 100 100 Oxygen Delivery Method Room Air Room Air Room Air 10/22/24 20:35 10/22/24 20:45 10/22/24 21:00 Temperature Temperature Source Pulse Rate 81 84 80 Respiratory Rate 14 15 16 Blood Pressure 113/65 103/59 L Blood Pressure Mean 78 73 Pulse Ox 99 Oxygen Delivery Method 10/22/24 21:17 Temperature 97.6 F L Temperature Source Oral Pulse Rate 85 Respiratory Rate 14 Blood Pressure 115/56 L Blood Pressure Mean 75 Pulse Ox 100 Oxygen Delivery Method Room Air Weight Weight: 202 lb 13.204 oz Body Mass Index (BMI) 29.9 Physical Exam Const alert, oriented x3, no apparent distress, average body habitus and healthy appearing General Appearance: cooperative HEENT normocephalic, head/scalp atraumatic, hearing grossly normal bilaterally and moist oral mucous membranes Eyes PERRL and EOMs intact bilaterally Eyes Narrative: Conjunctivae pale. Neck no lymphadenopathy and supple Resp normal respiratory effort, no retractions, no use of accessory muscles and clear to auscultation bilaterally Cardio regular rate and regular rhythm GI normal to inspection, nondistended, normoactive bowel sounds, soft to palpation, non-tender and non-distended Extremity normal to inspection, full ROM and no clubbing, cyanosis or edema Skin Skin Narrative: Patient appears pale but he has no evidence of rash. Neuro oriented x3, CN's II-XII intact bilaterally, moves all extremities and no focal motor deficits Sensorium / Orientation: awake, alert, oriented to person, oriented to place and oriented to time Speech: speech normal Psych affect normal Results Medical Records Data Attestation: I reviewed the patient's medical records Lab / Micro Data Attestation: I reviewed the patient's lab results. 10/22/24 20:08 10/22/24 20:08 Labs: Laboratory Results - last 24 hr 10/22/24 20:08: WBC 7.3, RBC 2.50 L, Hgb 4.9 L*, Hct 17.3 L, MCV 69.2 L, MCH 19.6 L, MCHC 28.3 L, RDW Std Deviation 44.7 H, RDW Coeff of Gerry 18.1 H, Plt Count 419, MPV 9.6, Immature Gran % (Auto) 1.000 H, Neut % (Auto) 65.8, Lymph % (Auto) 22.2, [place] % (Auto) 10.1 H, Eos % (Auto) 0.5, Baso % (Auto) 0.4, Absolute Neuts (auto) 4.8, Absolute Lymphs (auto) 1.62, Nucleated RBC % 0.3, Sodium 133, Potassium 3.1 L, Chloride 100, Carbon Dioxide 15.6 L, Anion Gap 18 H, BUN 30 H, Creatinine 1.39 H, Estim Creat Clear Calc 65.70, Est GFR (MDRD) Non-Af 59 L, BUN/Creatinine Ratio 21.4 H, Glucose 167 H, Lactic Acid 3.5 H*, Calcium 8.6, Total Bilirubin 0.84, AST 19, ALT 9, Alkaline Phosphatase 49, Troponin T High Sens 18, Total Protein 5.8 L, Albumin 3.6, Globulin 2.1 L, Albumin/Globulin Ratio 1.7, Lipase 31, Blood Type O POSITIVE Imaging Radiology Impression Chest X-Ray 10/22/24 20:43 IMPRESSION: No acute cardiopulmonary abnormality. Reading Location: [id number] [address] [place] [id number] Abdomen/Pelvis W IV Cont ONLY MR#: [id number] Acct: [id number] Name: MICHI CORREA Rep #: [id number] : 1965 M 59 From: Geoffrey Gilbetr MD PCP: Dr. Jake Jeronimo MD Status: ADM IN Study: Abdomen/Pelvis W IV Cont ONLY Date of Exam: 10/22/24 Exam# [id number] Ordering Dr: Best Gurrola DO PROCEDURE: ABDOMEN/PELVIS W IV CONT ONLY 10/22/2024 REASON FOR EXAM: ABDOMINAL PAIN TECHNIQUE: Abdomen and pelvis CT with intravenous contrast. Coronal and Sagittal reconstruction series were provided. PATIENT PREPARATION: Per protocol ORAL CONTRAST TYPE: None. AMOUNT: mL CONTRAST: Omnipaque 350 VOLUME: 100 mL Not Provided Gauge IV One or more dose reduction techniques were used (e.g., Automated exposure control, adjustment of the mA and/or kV according to patient size, use of iterative reconstruction technique. COMPARISON: CT abdomen and pelvis 05/16/2020 FINDINGS: Lung bases: Mild dependent atelectasis Liver: Normal size. No mass. Diffuse steatosis. Gallbladder: No ductal dilation. No cholelithiasis or abnormal wall thickening. Spleen: Normal size. Pancreas: Normal size without evidence of mass surrounding inflammation or ductal dilation. Adrenals: Unremarkable. Kidneys: 2 mm right UVJ obstructing calculus with mild hydroureteronephrosis. Mild right delayed nephrogram. Multiple other bilateral nonobstructing calculi, the largest in the right interpolar region measures 7 mm. No left hydronephrosis. Bladder: Urinary bladder is unremarkable. Reproductive Organs: Mild prostatomegaly. Status post vasectomy. Bowel: Small hiatal hernia. Remainder of the stomach is otherwise unremarkable. No bowel dilation or wall thickening. Moderate colonic stool. Appendix: Normal appendix. Lymph nodes: No suspicious lymph node enlargement. Vasculature: The abdominal aorta and IVC are normal. Peritoneum / Retroperitoneum: No ascites. No pneumoperitoneum. Bones: No suspicious osseous lesions. Soft tissues: Unremarkable. CT/Abdomen/Pelvis W IV Cont ONLY IMPRESSION: 2 mm right UVJ obstructing calculus with mild hydroureteronephrosis and mild delayed nephrogram. Several other nonobstructing calculi, bilaterally, measuring up to 7 mm. Hepatic steatosis without focal lesion. Reading Location: [facility] CC: Dr. Best Gurrola DO; Dr. Jake Jeronimo MD ~ Rock Crusher Operator: Signed Assessment & Plan Assessment/Plan (1) UGIB (upper gastrointestinal bleed): (2) ABLA (acute blood loss anemia): (3) Hypovolemic shock: (4) Acute hypokalemia: (5) Lactic acidosis: (6) History of duodenal ulcer: (7) Medically noncompliant: (8) Calculus of ureterovesical junction (UVJ): (9) Hydroureteronephrosis: (10) Obesity (BMI 30.0-34.9): PLAN: Plan 1. Severely low hemoglobin of 4.9 g/dL present on admission consistent with Acute Blood Loss Anemia requiring Transfusion with clinical evidence of Hypovolemic Shock - Admit to ICU. Proceed with transfusion of 3 units of PRBC's ordered in ER. Keep strict NPO and continue pantoprazole continuous infusion begun in the ER. Give ondansetron IV prn nausea and vomiting. Give promethazine IM prn breakthrough nausea. Give acetaminophen SC prn for [id number] (level 1-5/10) pain or fever. Give morphine IV prn for severe (level 6-10/10) pain. Finally, we will consult gastroenterology to see this patient on-rounds in the AM for further recommendations regarding EGD this admission with help appreciated in advance. 2. Lactic Acidosis of 3.5 mmol/L and Hypokalemia of 3.1 mmol/L both present on admission complicating #1 - Serialize lactate to follow trend. Give supplemental IV KCl and then recheck level in AM to confirm improvement. 3. Recent international travel to [place] with subsequent epigastric pain, nausea and vomiting with hematemesis, black stools and syncope precipitating #1 & #2 - Check CT scan of abdomen/pelvis to evaluate for possible mass or parasitic infection the patient may have acquired during his travels. Also check stool studies to evaluate for presence of possible parasites or other infectious agent. 4. History of GI bleed due to PUD suspected to be related to NSAID overuse - initially admitted here before transferring to tertiary care center (04/2024); s/p endoscopy at [facility] last Fall with patient subsequently prescribed pantoprazole (which he had not been taking) compounding #1 - #3 - Patient was sternly warned against medical noncompliance with PPI to avoid serial readmission. 5. CT scan of abdomen and pelvis done this admission revealed Right ~2 mm right UVJ obstructing calculus with mild hydroureteronephrosis and mild delayed nephrogram with several other nonobstructing calculi bilaterally measuring up to ~7 mm along with hepatic steatosis without focal lesion in the setting of a previously known history of nephrolithiasis adding to the medical complexity of #1 - #4 - We will consult urology to see patient this admission for further recommendations with help appreciated in advance. 6. Obesity; BMI of 30 this admission adding to the burden of disease outlined from #1 - #5 - Weight loss will be recommended. Check TSH. This complicates his case and may hamper recovery. 7. DVT prophylaxis - SCD's only in light of #1. Total time: Approximately (but not less than) 75 minutes. Charges/Coding Visit Charges Inpatient E&M: 48661 Init Hosp L3
--- NOTE | 2024-10-22 22:00 | CT_ITS ---
PROCEDURE: ABDOMEN/PELVIS W IV CONT ONLY 10/22/2024 REASON FOR EXAM: ABDOMINAL PAIN TECHNIQUE: Abdomen and pelvis CT with intravenous contrast. Coronal and Sagittal reconstruction series were provided. PATIENT PREPARATION: Per protocol ORAL CONTRAST TYPE: None. AMOUNT: mL CONTRAST: Omnipaque 350 VOLUME: 100 mL Not Provided Gauge IV One or more dose reduction techniques were used (e.g., Automated exposure control, adjustment of the mA and/or kV according to patient size, use of iterative reconstruction technique. COMPARISON: CT abdomen and pelvis 05/16/2020 FINDINGS: Lung bases: Mild dependent atelectasis Liver: Normal size. No mass. Diffuse steatosis. Gallbladder: No ductal dilation. No cholelithiasis or abnormal wall thickening. Spleen: Normal size. Pancreas: Normal size without evidence of mass surrounding inflammation or ductal dilation. Adrenals: Unremarkable. Kidneys: 2 mm right UVJ obstructing calculus with mild hydroureteronephrosis. Mild right delayed nephrogram. Multiple other bilateral nonobstructing calculi, the largest in the right interpolar region measures 7 mm. No left hydronephrosis. Bladder: Urinary bladder is unremarkable. Reproductive Organs: Mild prostatomegaly. Status post vasectomy. Bowel: Small hiatal hernia. Remainder of the stomach is otherwise unremarkable. No bowel dilation or wall thickening. Moderate colonic stool. Appendix: Normal appendix. Lymph nodes: No suspicious lymph node enlargement. Vasculature: The abdominal aorta and IVC are normal. Peritoneum / Retroperitoneum: No ascites. No pneumoperitoneum. Bones: No suspicious osseous lesions. Soft tissues: Unremarkable. CT/Abdomen/Pelvis W IV Cont ONLY IMPRESSION: 2 mm right UVJ obstructing calculus with mild hydroureteronephrosis and mild de layed nephrogram. Several other nonobstructing calculi, bilaterally, measuring up to 7 mm. Hepatic steatosis without focal lesion. Reading Location: [facility]
[2024-10-22] MEDS: Potassium Chloride 10mEq/100mL 10 MEQ/100 ML IV.SOLN. 100 MEQ IV BOLUS (22:29)
[2024-10-22 23:00] LABS: Troponin T High Sens 2 HR 13 ng/L (<=22)
--- NOTE | 2024-10-22 23:36 | ED.RN ---
Report given to [employer] INST[employer]ER . 22 LAC- potassium see MAR. 20 RAC- Protonix see MAR. 18 R FA- PRBC 1st unit started. See TAR.
[2024-10-23] VITALS (47 sets, daily range): BP systolic 83–125; BP diastolic 49–77; PULSE 59–82; RESP 6–19; TEMP 36.2–37.3; O2SAT 91–100; BMI 27.4
[2024-10-23 00:23] LABS: Reflex Lactate? Y
[2024-10-23 01:08] LABS: Ferritin 8 ng/mL (37-417); Vitamin B12 370 pg/mL (180-914)
[2024-10-23 01:18] LABS: Lactic Acid < 1.0 mmol/L (0.0-2.0)
[2024-10-23 01:26] LABS: Magnesium 1.6 mg/dL (1.5-2.2)
[2024-10-23 01:41] LABS: Iron Binding Capacity,Total 324 ug/dL (250-450)
[2024-10-23 01:50] LABS: Iron 11 ug/dL (65-175); PERCENT IRON SATURATION 3.4 % (9-55)
[2024-10-23 02:00] LABS: FOLATES,SERUM (FOLIC ACID) 8.32 ng/mL (4.60-34.80)
[2024-10-23 02:26] LABS: Iron Binding Capacity,Unsat 313 ug/dL (228-428)
[2024-10-23] MEDS: 0.9% Normal Saline (1000mL) 1,000 ML 150 ML IV ×2 (04:41→17:30)
[2024-10-23] MEDS: 0.9% Saline Lock 10 ML Syringe IV ×2 (04:45→12:35)
[2024-10-23] MEDS: Pantoprazole Sodium 80 MG in 0.9% Normal Saline (100mL Bag) 80 ML 10 MG CONT INF ×2 (06:33→18:17)
[2024-10-23 07:04] LABS: Absolute Lymphocyte Count 1.44 X10^3/uL (0.83-4.51); Absolute Neutrophil Count 3.8 X10^3/uL (2.0-7.7); Basophil# 0.04 X10^3/uL; Basophil% 0.7 % (0-1); Eosinophil# 0.08 X10^3/uL; Eosinophils% 1.3 % (0-5); Hematocrit 19.4 % (40-54); Hemoglobin 6.1 g/dL (13.0-16.5); Lymphocyte # 1.44 X10^3/ul (0.83-4.51); Mean Corp Hgb Conc 31.4 g/dL (32-36); Mean Corpuscular Hgb 23.7 pg (27.0-32.0); Mean Corpuscular Volume 75.5 fL (80-94); Mean Platelet Vol. 9.5 fl (6.2-12.0); Monocyte# 0.64 X10^3/uL; Monocyte% 10.6 % (0-10); NRBC Flagged by Analyzer 0 % (0-5); Neutrophil # 3.77 X10^3/uL (2.7-7.7); Neutrophil % 62.7 % (47-70); POSITIVE MORPHOLOGY YES; Platelet Count 274 K/mm3 (150-450); RBC Distribution Width CV 20.9 % (11.6-14.6); RBC Distribution Width SD 57.1 fl (35.1-43.9); Red Blood Count 2.57 M/mm3 (4.6-6.2)
[2024-10-23 07:18] LABS: Differential Indicated SCAN CRITERIA MET
[2024-10-23 07:39] LABS: Phosphorus 3.4 mg/dL (2.7-4.5)
[2024-10-23 07:41] LABS: ALB/GLOB Ratio 1.4 RATIO (0.9-2.4); AST(SGOT) 15 U/L (<=37); Alanine Aminotransfer ALT/SGPT 8 U/L (<=46); Albumin, Serum 3.1 g/dL (3.5-5.0); Alkaline Phosphatase 36 U/L (40-129); Anion Gap 7 (5-15); BUN 25 mg/dL (4-19); BUN/Creat Ratio 28.6 RATIO (10-20); Calcium,Total 7.9 mg/dL (7.6-11.0); Carbon Dioxide 20.1 mmol/L (21.0-32.0); Chloride 112 mmol/L (98-108); Creatinine, Serum 0.88 mg/dL (0.70-1.20); EST Glomerular Filtration Rate 100 (>60); Globulin 2.2 g/dL (2.2-4.2); Glucose 90 mg/dL (70-99); Potassium 3.7 mmol/L (3.3-5.1); Protein, Total 5.2 g/dL (5.9-8.4); Sodium Level 140 mmol/L (133-145); Total Bilirubin 0.74 mg/dL (0.00-1.30)
--- NOTE | 2024-10-23 08:15 | CON.PCM.UR_ITS ---
Assessment & Plan Assessment/Plan (1) Hydroureteronephrosis: (2) Calculus of ureterovesical junction (UVJ): PLAN: Small stone will pass spontaneously, larger stone in the right kidney nonobstructive, he can follow-up as an outpatient to address that larger stone once his GI issues have been resolved. HPI Consult Data Date of Consult: 10/23/24 HPI Narrative Reason for Consultation: Kidney stones HPI Narrative: MICHI CORREA, is a 59 M who presents to the hospital with another upper GI bleed low hemoglobin he is in currently in stepdown unit on close observation. CT scan was done demonstrates a very tiny stone in the distal right ureter he does relate having severe right flank pain in the last few days he is jovita pass a stone no intervention is necessary. He does have a 8 mm stone in the right kidney which is nonobstructive and at some point he will need this get that taken care of so he can follow-up as an outpatient with me to look at elective outpatient surgery for the kidney stone but will wait till his GI bleeding issues are resolved. Call me with questions [facility] Medical History Bleeding ulcer Nephrolithiasis Home Medications ?Medication ?Instructions ?Recorded ?Last Taken ?Type pantoprazole 20 mg tablet,delayed 20 mg PO DAILY STOMA CH ACID 10/22/24 10/22/24 History release (Protonix) Allergy/AdvReac Type Severity Reaction Status Date / Time amoxicillin (From Augmentin) Allergy Vomiting Verified 10/22/24 19:48 azithromycin Allergy Abd Verified 10/22/24 19:48 cramps/diarrhea clavulanic acid (From Allergy Vomiting Verified 10/22/24 19:48 Augmentin) Family History Mother No problems noted. Father No problems noted. Surgical History History of dental surgery Social History household members: spouse Smoking Status: Never smoker alcohol intake: never substance use type: does not use ROS Constitutional Constitutional: Denies chills, fever(s) or malaise Eyes Eyes: Denies blurry vision or change in vision ENT HEENT: Reports none Cardiovascular Cardiovascular: Denies chest pain or palpitations Respiratory/Chest Respiratory/Chest: Denies cough or shortness of breath with exertion Gastrointestinal Gastrointestinal: Denies abdominal pain, constipation or diarrhea Musculoskeletal Musculoskeletal: Denies back pain, joint stiffness or joint swelling Integumentary Integumentary: Denies dry skin, jaundice, lesions or rash Neurologic Neurologic: Denies confusion, syncope or weakness Psychiatric Psychiatric: Reports none; Denies anxiety or depression Endocrine Endocrinology: Denies excessive sweating, fatigue or flushing Hematologic/Lymphatic Hematologic/Lymphatic: Denies anemia, easy bleeding or easy bruising Physical Exam Const alert and oriented x3 General Appearance: cooperative HEENT normocephalic and head/scalp atraumatic Eyes PERRL and EOMs intact bilaterally Neck supple, no JVD and no carotid bruits Resp normal respiratory effort, normal air movement and clear to auscultation bilaterally Cardio regular rate and no murmurs GI normal to inspection, nondistended, normoactive bowel sounds and soft to palpation Extremity normal capillary refill General Extremity: no tenderness to palpation of joints or extremities; Negative for edema Skin no rashes or lesions noted and no wounds General Skin Exam: no breakdown Neuro CN's II-XII intact bilaterally Psych affect normal Appearance: appropriate Medical Records Data Attestation: I reviewed the patient's medical records Lab / Micro Data 10/23/24 06:39 10/23/24 06:39 Labs: Laboratory Results - last 24 hr 10/22/24 00:20: Lactic Acid < 1.0, Magnesium 1.6, Iron 11 L, TIBC 324, Iron Saturation 3.4 L, Unsaturated IBC 313, Ferritin 8 L, Vitamin B12 370, Serum Folate 8.32, TSH 35.600 H 10/22/24 20:08: WBC 7.3, RBC 2.50 L, Hgb 4.9 L*, Hct 17.3 L, MCV 69.2 L, MCH 19.6 L, MCHC 28.3 L, RDW Std Deviation 44.7 H, RDW Coeff of Gerry 18.1 H, Plt Count 419, MPV 9.6, Immature Gran % (Auto) 1.000 H, Neut % (Auto) 65.8, Lymph % (Auto) 22.2, [place] % (Auto) 10.1 H, Eos % (Auto) 0.5, Baso % (Auto) 0.4, Absolute Neuts (auto) 4.8, Absolute Lymphs (auto) 1.62, Nucleated RBC % 0.3, Sodium 133, Potassium 3.1 L, Chloride 100, Carbon Dioxide 15.6 L, Anion Gap 18 H, BUN 30 H, Creatinine 1.39 H, Estim Creat Clear Calc 65.70, Est GFR (MDRD) Non-Af 59 L, B UN/Creatinine Ratio 21.4 H, Glucose 167 H, Lactic Acid 3.5 H*, Calcium 8.6, Total Bilirubin 0.84, AST 19, ALT 9, Alkaline Phosphatase 49, Troponin T High Sens 18, Total Protein 5.8 L, Albumin 3.6, Globulin 2.1 L, Albumin/Globulin Ratio 1.7, Lipase 31, Blood Type O POSITIVE, Antibody Screen NEGATIVE 10/22/24 20:24: Crossmatch See Detail 10/22/24 22:25: Troponin T Hi Sens 2 Hr 13 10/23/24 06:39: WBC 6.0, RBC 2.57 L, Hgb 6.1 L, Hct 19.4 L, MCV 75.5 L D, MCH 23.7 L, MCHC 31.4 L D, RDW Std Deviation 57.1 H, RDW Coeff of Gerry 20.9 H, Plt Count 274, MPV 9.5, Immature Gran % (Auto) 0.700, Neut % (Auto) 62.7, Lymph % (Auto) 24.0, [place] % (Auto) 10.6 H, Eos % (Auto) 1.3, Baso % (Auto) 0.7, Absolute Neuts (auto) 3.8, Absolute Lymphs (auto) 1.44, Nucleated RBC % 0, Sodium 140, Potassium 3.7, Chloride 112 H, Carbon Dioxide 20.1 L, Anion Gap 7, BUN 25 H, Creatinine 0.88, Estim Creat Clear Calc 89.60, Est GFR (MDRD) Non-Af 100, B UN/Creatinine Ratio 28.6 H, Glucose 90, Calcium 7.9, Phosphorus 3.4, Total Bilirubin 0.74, AST 15, ALT 8, Alkaline Phosphatase 36 L, Total Protein 5.2 L, A lbumin 3.1 L, Globulin 2.2, Albumin/Globulin Ratio 1.4 Imaging Radiology Impression Chest X-Ray 10/22/24 20:43 IMPRESSION: No acute cardiopulmonary abnormality. Reading Location: [id number] Abdomen/Pelvis CT 10/22/24 22:00 IMPRESSION: 2 mm right UVJ obstructing calculus with mild hydroureteronephrosis and mild delayed nephrogram. Several other nonobstructing calculi, bilaterally, measuring up to 7 mm. Hepatic steatosis without focal lesion. Reading Location: [facility]
--- NOTE | 2024-10-23 08:17 | DCINST_ITS ---
Discharge Instructions Diet Discharge Diet: No restrictions DC O2, CPAP, BIPAP needs Home O2 Discharge instructions: No Dressing / Incision Discharge Activity: Return to Normal Activity and May Not Drive (while taking narcotic pain medications.) Dressing / Incision Call your doctor if you observe: Fever of 101 or Higher Follow Up Care Please Follow Up With: Nick Brown MD When: Call [phone] for an appointment Test Results: Test results from this visit will be discussed in further detail at your follow- up appointment, if applicable. Discharge Plan Admission Admit Date/Time: 10/22/24 22:21 Attending Provider: Temo Moncada Primary Care Provider: Jake Jeronimo Consulting Providers: Burt Hoffman; Nick rBown Discharge Orders/Prescriptions Prescriptions: No Action pantoprazole [Protonix] 20 mg tablet,delayed release (DR/EC) 20 mg PO DAILY Referrals / Follow Up: Jake Jeroniom MD [Primary Care Provider] -
--- NOTE | 2024-10-23 08:17 | PCM.PN.HOSP ---
Reason for Visit Reason for Visit: Diagnoses Acute posthemorrhagic anemia (10/22/24) Obesity, class 1 (10/22/24) Acidosis, unspecified (10/22/24) Hypokalemia (10/22/24) Gastrointestinal hemorrhage, unspecified (10/22/24) Unspecified hydronephrosis (10/22/24) Calculus of ureter (10/22/24) Hypovolemic shock (10/22/24) Personal history of other diseases of the digestive system (10/22/24) Patient's noncompliance with other medical treatment and regimen due to unspecified reason (10/22/24) Objective Data Objective Data Vital Signs: Vital Signs Temp Pulse Resp BP Pulse Ox O2 Del Method 97.7 F L 65 14 100/57 L 96 Room Air 10/23/24 04:45 10/23/24 07:00 10/23/24 07:00 10/23/24 07:00 10/23/24 07:00 10/23/24 07:00 Oxygen Delivery Method Room Air Weight: 180 lb 12.465 oz Body Mass Index (BMI) 27.4 Intake & Output: Intake and Output for Last 24 Hours 10/21/24 10/22/24 10/23/24 23:59 23:59 23:59 Intake Total 1135 / 1135 1900 / 1900 Output Total 500 / 500 Balance 1135 / 1135 1400 / 1400 Lab / Micro Data 10/23/24 06:39 10/23/24 06:39 Labs: Laboratory Results - last 24 hr 10/22/24 00:20: Lactic Acid < 1.0, Magnesium 1.6, Iron 11 L, TIBC 324, Iron Saturation 3.4 L, Unsaturated IBC 313, Ferritin 8 L, Vitamin B12 370, Serum Folate 8.32, TSH 35.600 H 10/22/24 20:08: WBC 7.3, RBC 2.50 L, Hgb 4.9 L*, Hct 17.3 L, MCV 69.2 L, MCH 19.6 L, MCHC 28.3 L, RDW Std Deviation 44.7 H, RDW Coeff of Gerry 18.1 H, Plt Count 419, MPV 9.6, Immature Gran % (Auto) 1.000 H, Neut % (Auto) 65.8, Lymph % (Auto) 22.2, Parker % (Auto) 10.1 H, Eos % (Auto) 0.5, Baso % (Auto) 0.4, Absolute Neuts (auto) 4.8, Absolute Lymphs (auto) 1.62, Nucleated RBC % 0.3, Sodium 133, Potassium 3.1 L, Chloride 100, Carbon Dioxide 15.6 L, Anion Gap 18 H, BUN 30 H, Creatinine 1.39 H, Estim Creat Clear Calc 65.70, Est GFR (MDRD) Non-Af 59 L, BUN/Creatinine Ratio 21.4 H, Glucose 167 H, Lactic Acid 3.5 H*, Calcium 8.6, Total Bilirubin 0.84, AST 19, ALT 9, Alkaline Phosphatase 49, Troponin T High Sens 18, Total Protein 5.8 L, Albumin 3.6, Globulin 2.1 L, Albumin/Globulin Ratio 1.7, Lipase 31, Blood Type O POSITIVE, Antibody Screen NEGATIVE 10/22/24 20:24: Crossmatch See Detail 10/22/24 22:25: Troponin T Hi Sens 2 Hr 13 10/23/24 06:39: WBC 6.0, RBC 2.57 L, Hgb 6.1 L, Hct 19.4 L, MCV 75.5 L D, MCH 23.7 L, MCHC 31.4 L D, RDW Std Deviation 57.1 H, RDW Coeff of Gerry 20.9 H, Plt Count 274, MPV 9.5, Immature Gran % (Auto) 0.700, Neut % (Auto) 62.7, Lymph % (Auto) 24.0, Parker % (Auto) 10.6 H, Eos % (Auto) 1.3, Baso % (Auto) 0.7, Absolute Neuts (auto) 3.8, Absolute Lymphs (auto) 1.44, Nucleated RBC % 0, Sodium 140, Potassium 3.7, Chloride 112 H, Carbon Dioxide 20.1 L, Anion Gap 7, BUN 25 H, Creatinine 0.88, Estim Creat Clear Calc 89.60, Est GFR (MDRD) Non-Af 100, BUN/Creatinine Ratio 28.6 H, Glucose 90, Calcium 7.9, Phosphorus 3.4, Total Bilirubin 0.74, AST 15, ALT 8, Alkaline Phosphatase 36 L, Total Protein 5.2 L, Albumin 3.1 L, Globulin 2.2, Albumin/Globulin Ratio 1.4 Radiography Diagnostic Testing: Radiology Impression Chest X-Ray 10/22/24 20:43 IMPRESSION: No acute cardiopulmonary abnormality. Reading Location: [id number] Abdomen/Pelvis CT 10/22/24 22:00 IMPRESSION: 2 mm right UVJ obstructing calculus with mild hydroureteronephrosis and mild delayed nephrogram. Several other nonobstructing calculi, bilaterally, measuring up to 7 mm. Hepatic steatosis without focal lesion. Reading Location: [facility] Physical Exam Narrative Patient has been having nasal/sinus drainage for last 3 to 4 weeks. During Lindsey visit he denies any significant abnormal event like food poisoning, fever or GI bleed. Complain of melena yesterday and probably coffee-ground drainage but other than it was whitish in last 3 to 4 weeks. Denies hematuria or burning pain in urine/increased frequency or urgency. Has history of kidney stone and passed a stone in the past. No fever. Denies alcohol, NSAID or steroid use. Physical exam General: Alert, Oriented x3, Cooperative HEENT: Atraumatic, PERRLA, EOMI, Normocephalic. Oral: No Gingival or Mucosal Lesions/ Ulcerations Neck: Supple, No JVD, Negative Carotid Bruits Chest wall/Lungs: Air entry diminished in bilateral lung bases. No crepitation/rhonchi Cardiovascular: Regular rate and rhythm, Normal S1,S2, No M/G/R Abdomen: Bowel Sounds Present, Soft, mild tenderness to epigastric region, Non-Distended : No dysuria. No renal angle tenderness. No suprapubic tenderness. Extremities: No edema, Capillary Refill Less than 3 Seconds Skin: No rashes, No breakdown Musculoskeletal: No Tenderness to Palpation of Joints or Extremities Neurological: Cranial nerves II-XII grossly intact, DTR 2+/4. No acute focal neurological deficit. Psych/Mental Status: Normal Affect, Appropriate. Assessment & Plan Assessment/Plan (1) UGIB (upper gastrointestinal bleed): (2) ABLA (acute blood loss anemia): (3) Hypovolemic shock: (4) Acute hypokalemia: (5) Lactic acidosis: (6) History of duodenal ulcer: (7) Medically noncompliant: (8) Calculus of ureterovesical junction (UVJ): (9) Hydroureteronephrosis: (10) Obesity (BMI 30.0-34.9): PLAN: Plan 59-year-old gentleman came to ED with vomiting blood intermittently for last 3 weeks, came to ED with near syncopal episode. Patient's gave propranolol. Mild epigastric discomfort when he tries to eat. His stool was black/melena. No fever. History of bleeding ulcer in April. Was in [place] approximately weeks ago 1. Upper GI bleed with melena and mild hematemesis: In April 2024 when he was transferred to [facility] He had endoscopy and patient told. Duodenal ulcer. IV PPI. GI consulted. Patient is being admitted in ICU. 2. Acute severe blood loss anemia, iron deficiency anemia and hypokalemia: Patient BP was low at 97/59 in ED, heart rate 106 per blood. H&H 4.9/17.3%. Platelet count 419K. Patient was ordered 3 units of PRBC. Lactic acidosis 3.5 probably from hypoperfusion. Hypokalemia. Electrolytes are getting replaced 3. Recent international travel to [place] with subsequent epigastric pain: CT abdomen shows small hiatus hernia and moderate colonic stool otherwise unremarkable. 4. History of GI bleed due to PUD suspected to be related to NSAID overuse 5. Right UVJ obstructing calculus with mild right hydroureteronephrosis and multiple bilateral other nonobstructing calculi, largest 7 mm: No left hydronephrosis. UB unremarkable discussed with Dr. Brown. Urologist consulted he thinks he will pass it. Right UVJ stone reported 2 mm. 6. Obesity; BMI of 30 KG per square meter- Weight loss will be recommended. 7. DVT prophylaxis - SCD's bilateral. Pharmacological prophylaxis contraindicated. Clinical Impression(s) from Imaging Studies Chest X-Ray 10/22/24 20:43 IMPRESSION: No acute cardiopulmonary abnormality. Reading Location: [id number] Abdomen/Pelvis CT 10/22/24 22:00 IMPRESSION: 2 mm right UVJ obstructing calculus with mild hydroureteronephrosis and mild delayed nephrogram. Several other nonobstructing calculi, bilaterally, measuring up to 7 mm. Hepatic steatosis without focal lesion. Reading Location: [facility] Charges/Coding Visit Charges Inpatient E&M: 44839 Subs Hosp L3
[2024-10-23 08:43] LABS: Ovalocyte 1+
[2024-10-23 08:44] LABS: Acanthocytes 1+; Tear Drop Cell 1+
[2024-10-23 08:45] LABS: Anisocytosis 1+; Platelet Estimate A (ADEQ)
[2024-10-23 09:51] LABS: Hemoglobin A1c 5.3 % (<=5.6)
[2024-10-23] MEDS: Ceftriaxone 1 GM/50 ML BAG IV (10:17)
--- NOTE | 2024-10-23 10:36 | CASEMGMT ---
Addendum entered by Chastity Larios 10/23/24 12:12: Pt was provided w/local physicians directory w/Dr Brown & Dr Mcpherson' info, as pt states he would like to f/u with [place]velar [place]. Directory also includes local PCP's and RN VALERIO did recommend getting established w/PCP as well. Pt voices appreciation. Original Note: RN?CM?ASSISTANT MANAGER OF OPERATIONS?CM?to room to meet with patient for initial transition planning/care coordination?assessment.?RN?CM?introduced self and role at [facility].? Pt voices understanding and consents to?assessment?at this time.? Pt resting in bed in no distress at this time.? Pt is A/O at this time and answers all questions appropriately.?? Care providers, pharmacy, and demographics verified/updated at this time. Strata: 2 PCP: No PCP. Pt has been to Dr Jeronimo in the past but that was 5-7 yrs ago. 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 Specialists: None. Preferred Pharmacy: [facility] Insurance: [employer] Prescription Benefit:?none Living Will/HPOA:?Pt does not currently have LW/HCPOA and declines info at this time.? Pt made aware that he can contact as an out-pt and make appt in the future if he decides he would like to talk with someone about this or would like to utilize [facility] social work for advanced directive completion. LNOK: , Leticia Brito Living Arrangements: Lives w/ and 3 children (21,20,16) in a 2-story home w/no steps to enter. [employer]. Independent. Transportation:?Pt states drives self and states no transportation concerns at this time.? drives. DME: ? Denies using any DME. HHC/SNF: No hx of either. Pt wishes to return home and states has no concerns with going home at time of discharge.? CM?to follow any discharge planning/needs.? Pt voices no further concerns/needs at this time.? Advised pt to ask for?CM?if any further questions/concerns/needs arise.? Voices understanding. PLAN:??Home Jurgen URIARTEN?RN?CM
[2024-10-23] MEDS: Ondansetron 4 MG/2 ML Vial IV (12:35)
--- NOTE | 2024-10-23 13:50 | NURSING ---
Pt to endo via OR tech and RN
[2024-10-23 13:53] LABS: Bacteria 0 SEEN /hpf (None Seen); Mucous, Urine 0 SEEN /hpf (<or=2+)
--- NOTE | 2024-10-23 14:14 | PRE.ANES_ITS ---
ASA Classification* ASA Classification ASA Classification: 4 and E Assessment & Plan Anesthesia* Anesthesia Assessment Anesthesia Assessment: Discussed sedation and/or anesthesia options, risks, benefits, and alternatives with patient/parents/legal guardian/POA. Questions invited. The patient/parents/legal guardian/POA seems to understand and agrees to proceed with anesthesia plan. Reviewed the physical assessment, medical history, allergy history and patient home medications list prior to surgery/procedure/anesthetic and documented any changes. Performed airway and anesthesia risk assessments. Anesthesia Type Anesthesia Type: MAC History Source History Obtained from:: Patient and Chart Anesthesia Focused Assessment* Temperature: 97.5 F Pulse Rate: 68 Blood Pressure: 119/64 Respiratory Rate: 16 Pulse Ox: 99 Oxygen Delivery Method: Room Air Airway Assessment Mouth opens: >3 cm Mallampati Score: I Teeth Condition: Caps/Crowns Neck Range of motion (ROM): Full ROM Focused Labs Anesthesia Preop lab: CBC WBC 6.0 K/mm3 (4.4-11.0) 10/23/24 06:39 10/23/24 RBC 2.57 M/mm3 (4.6-6.2) L 10/23/24 06:39 10/23/24 Hgb 6.1 g/dL (13.0-16.5) L 10/23/24 06:39 10/23/24 Hct 19.4 % (40-54) L 10/23/24 06:39 10/23/24 Plt Count 274 K/mm3 (150-450) 10/23/24 06:39 10/23/24 CHEMISTRY Potassium 3.7 mmol/L (3.3-5.1) 10/23/24 06:39 10/23/24 Sodium 140 mmol/L (133-145) 10/23/24 06:39 10/23/24 Magnesium 1.6 mg/dL (1.5-2.2) 10/22/24 00:20 10/22/24 Phosphorus 3.4 mg/dL (2.7-4.5) 10/23/24 06:39 10/23/24 BUN 25 mg/dL (4-19) H 10/23/24 06:39 10/23/24 Creatinine 0.88 mg/dL (0.70-1.20) 10/23/24 06:39 10/23/24 Glucose 90 mg/dL (70-99) 10/23/24 06:39 10/23/24 TSH 35.600 uIU/mL (0.300-4.200) H 10/22/24 00:20 0 10/22/24 COAG PT 13.7 SECONDS (11.7-14.9) 05/16/24 15:37 Pre-Assessment Diagnosis/Proposed Procedure Planned Operative Procedure(s): EGD Anesthesia History 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 When Was Last Pacemaker Check QUESTION #4 FULL TEXT: You/Your Family Experience fever (hyperthermia) with Anesthesia Any additional information?: Yes Hx Hospitalization: Yes Any Problems With Anesthesia: No Cholinesterase deficiency: No You/your family experience fever (hyperthermia) with anesthesia: No Last Oral Intake Last Oral intake: Last Oral Intake NPO since Meds taken in AM with sips of water? Meds patient instructed to take am of surgery Any additional information?: Yes NPO since: 23:00 Meds taken in AM with sips of water?: Yes PONV PONV - automobile technician: PONV - automobile technician Female HX of Motion Sickness HX of N/V After Surgery Non-Smoker Duration of Surgery greater than 60 minutes Number of Risk Factors PONV Score Any additional information?: Yes Female: No HX of Motion Sickness: No HX of N/V After Surgery: No Non-Smoker: Yes Duration of Surgery greater than 60 minutes: No Number of Risk Factors: 1 PONV Score: Low Risk Height & Weight Height & Weight: Anesthesia: Height & Weight Height 5 ft 8 in 10/23/24 09:28 Weight: 82 kg 10/23/24 09:28 Body Mass Index (BMI) 27.4 10/23/24 06:00 Respiratory Assessment Respiratory Assessment - automobile technician: Respiratory Tract Infection Hx - automobile technician Hx Respiratory Tract Infection Any additional information?: No STOP Sleep Apnea STOP Sleep Apnea - automobile technician: STOP Sleep Apnea - automobile technician Hx Hypertension No 10/23/24 00:46 Hx Sleep Apnea Yes: pt used cpap at home 10/23/24 00:46 for a while but did not work well- stopped CPAP No 10/23/24 00:46 BIPAP No 10/23/24 00:46 Do you snore loudly (louder than talking or can be heard Do you often feel tired/ fatigued/ sleepy during daytime? Has anyone observed you stop Yes 10/23/24 00:46 breathing during sleep? STOP Results Positive 10/23/24 00:46 QUESTION #5 FULL TEXT : Do you snore loudly (louder than talking or can be heard through closed doors)? Tobacco Use History Tobacco Use History - automobile technician: Tobacco Use History - automobile technician Tobacco Use Smoking Status Never smoker 10/23/24 00:46 Hx Tobacco Use No 10/23/24 00:46 Years Smoking Packs Smoked per Day Smoking Cessation Date was within the last 15 years Hx Smoking Cessation Date Hx Smoking Cessation Counseling Hematologic Medial History Hematologic Hx - automobile technician: Hematologic Medical Hx - lunchroom mother Hx of Blood Transfusion No 10/23/24 00:46 Hx of Transfusion in last 3 No 10/23/24 00:46 Months Date of Last Transfusion (if within last 3 months) Ever experience any problems No 10/23/24 00:46 with transfusion(s)? Specify any problems Hx of Preganancy in last 3 N/A 10/23/24 00:46 Months Nurse Filling Out Transfusion OUT.CBRAN 10/23/24 00:46 & Questions: Date: 10/23/24 10/23/24 00:46 Time: 00:52 10/23/24 00:46 Patient unable to answer at this time (ie. confused, unrespo Any additional information?: Yes Hx of Blood Transfusion: Yes Hx of Transfusion in last 3 Months: Yes Date of Last Transfusion (if within last 3 months): 10/23/2024 Ever experience any problems with transfusion(s)?: No Hx of Preganancy in last 3 Months: N/A /Reproduction History /Reproductive History - automobile technician: /Reproductive Hx- automobile technician Hx Now Gestational Age (in weeks): EDC: Hx Hx Para Hx Section SAB Active Medications Active Medications: Current Medications Generic Name Dose Route Start Last Admin Trade Name Freq PRN Reason Stop Dose Admin Acetaminophen 650 mg 10/23/24 00:14 Acetaminophen 650 Mg Suppository RC Q6H PRN PRN Pain 1-5/10 or Fever Sodium Chloride 1,000 mls @ 150 mls/hr 10/22/24 20:30 10/23/24 13:43 IV Infused .[id number] TUCKER Infusion Pantoprazole Sodium 80 mg/ 100 mls @ 10 mls/hr 10/22/24 21:05 10/23/24 06:33 Sodium Chloride CONT INF 10 mls/hr Q10H TUCKER Administration Ceftriaxone Sodium 1 gm in 50 mls @ 100 mls/hr 10/23/24 10:00 10/23/24 10:55 Rocephin IV Infused Q24 TUCKER Infusion Morphine Sulfate 2 mg 10/23/24 00:14 Morphine 2 Mg/Ml Syringe IV Q4H PRN PRN Pain Score 6-10 Ondansetron HCl 4 mg 10/23/24 00:14 10/23/24 12:35 Ondansetron 4 Mg/2 Ml Vial IV 4 mg Q6H PRN PRN Administration NAUSEA/VOMITING Sodium Chloride 10 - 40 ml 10/23/24 01:21 10/23/24 12:35 0.9% Saline Lock 10 Ml Syringe IV 20 ml UD PRN Administration SALINE FLUSH PFSH Medical History Bleeding ulcer Nephrolithiasis Home Medications ?Medication ?Instructions ?Recorded ?Last Taken ?Type pantoprazole 20 mg tablet,delayed 20 mg PO DAILY STOMA CH ACID 10/22/24 10/22/24 History release (Protonix) Allergy/AdvReac Type Severity Reaction Status Date / Time amoxicillin (From Augmentin) Allergy Vomiting Verified 10/22/24 19:48 azithromycin Allergy Abd Verified 10/22/24 19:48 cramps/diarrhea clavulanic acid (From Allergy Vomiting Verified 10/22/24 19:48 Augmentin) Family History Mother No problems noted. Father No problems noted. Surgical History History of dental surgery Social History household members: spouse Smoking Status: Never smoker alcohol intake: never substance use type: does not use Review of Systems (Anesthesia) ROS Narrative System reviewed and no additional complaints, except as documented. Physical Exam Const alert and oriented x3 Resp normal respiratory effort Cardio regular rate Neuro oriented x3 and moves all extremities
[2024-10-23 14:17] LABS: Color, Urine Straw (Yellow); Glucose, Dipstick Normal (Normal); Ketone-Dipstick 15 mg/dl (Negative); Leukocyte Esterase-Dipstick Negative /ul (Negative); Nitrite-Dipstick Negative (Negative); Occult Blood-Urine 10 /ul (Negative); Protein-Dipstick 30 mg/dl (Negative); Specific Gravity, Urine 1.015 (1.002-1.030); Urine Bilirubin Dipstick Negative (Negative); Urine Clarity Clear (Clear); Urine Urobilinogen Normal (Normal)
[2024-10-23 14:32] LABS: Protein, Urine (Random) 13.7 mg/dL (0.0-12.0); Protein:Creat Ratio 149 mg/g CRE (0-200); Urine Chloride 94 mmol/L (Not Establ.); Urine Potassium 34.9 mmol/L (Not Establ.); Urine Sodium 78 mmol/L (Not Establ.)
--- NOTE | 2024-10-23 14:49 | PN_ITS ---
Progress Note Patient had all questions concerns answered. He is status post transfusion of packed red blood cells. Physical Exam Narrative Complain of melena yesterday and probably coffee-ground drainage but other than it was whitish in last 3 to 4 weeks. Physical exam General: Alert, Oriented x3, Cooperative HEENT: Atraumatic, PERRLA, EOMI, Normocephalic. Oral: No Gingival or Mucosal Lesions/ Ulcerations Neck: Supple, No JVD, Negative Carotid Bruits Chest wall/Lungs: Air entry diminished in bilateral lung bases. No crepitation/rhonchi Cardiovascular: Regular rate and rhythm, Normal S1,S2, No M/G/R Abdomen: Bowel Sounds Present, Soft, mild tenderness to epigastric region, Non- Distended : No dysuria. No renal angle tenderness. No suprapubic tenderness. Extremities: No edema, Capillary Refill Less than 3 Seconds Skin: No rashes, No breakdown Musculoskeletal: No Tenderness to Palpation of Joints or Extremities Neurological: Cranial nerves II-XII grossly intact, DTR 2+/4. No acute focal neurological deficit. Psych/Mental Status: Normal Affect, Appropriate. Assessment & Plan Assessment/Plan (1) ABLA (acute blood loss anemia): (2) UGIB (upper gastrointestinal bleed): (3) Hypovolemic shock: (4) Acute hypokalemia: (5) Lactic acidosis: (6) History of duodenal ulcer: (7) Medically noncompliant: (8) Calculus of ureterovesical junction (UVJ): (9) Hydroureteronephrosis: (10) Obesity (BMI 30.0-34.9): PLAN: Plan Severely low hemoglobin of 4.9 g/dL present on admission consistent with Acute Blood Loss Anemia requiring Transfusion with clinical evidence of Hypovolemic Shock - Admit to ICU. Proceed with transfusion of 3 units of PRBC's ordered in ER. Keep strict NPO and continue pantoprazole continuous infusion begun in the ER. Give ondansetron IV prn nausea and vomiting. Give promethazine IM prn breakthrough nausea. Give acetaminophen NV prn for [id number] (level 1- 5/10) pain or fever. Give morphine IV prn for severe (level 6-10/10) pain. Visit Charges Inpatient E&M: [id number] [place] [id number]
--- NOTE | 2024-10-23 15:18 | OP.EGD_ITS ---
Patient Name: Cleo Manuel Procedure Date: 10/23/2024 2:41 PM Date of : 1965 Age: 59 Procedure: Upper GI endoscopy Indications: Recent gastrointestinal bleeding Providers: Alan Avelar DO Medicines: Monitored Anesthesia Care Patient Profile: This is a 59 year old male. Refer to note in patient chart for documentation of history and physical. Patient has symptoms of acute epigastric abdominal pain. Patient has symptoms of acute epigastric abdominal pain. Complications: No immediate complications. Procedure: Pre-Anesthesia Assessment: - Prior to the procedure, a History and Physical was performed, and patient medications and allergies were reviewed. The patient is competent. The risks and benefits of the procedure and the sedation options and risks were discussed with the patient. All questions were answered and informed consent was obtained. Patient identification and proposed procedure were verified in the pre-procedure area. Mental Status Examination: alert and oriented. Airway Examination: normal oropharyngeal airway and neck mobility. Respiratory Examination: clear to auscultation. CV Examination: normal. Prophylactic Antibiotics: The patient does not require prophylactic antibiotics. Prior Anticoagulants: The patient has taken no anticoagulant or antiplatelet agents except for aspirin. ASA Grade Assessment: II - A patient with mild systemic disease. After reviewing the risks and benefits, the patient was deemed in satisfactory condition to undergo the procedure. The anesthesia plan was to use monitored anesthesia care (MAC). Immediately prior to administration of medications, the patient was re-assessed for adequacy to receive sedatives. The heart rate, respiratory rate, oxygen saturations, blood pressure, adequacy of pulmonary ventilation, and response to care were monitored throughout the procedure. The physical status of the patient was re-assessed after the procedure. After obtaining informed consent, the endoscope was passed under direct vision. Throughout the procedure, the patient's blood pressure, pulse, and oxygen saturations were monitored continuously. The Endoscope was introduced through the mouth, and advanced to the third part of the duodenum. Small bowel enteroscopy was deemed necessary. The upper GI endoscopy was accomplished with ease. The patient tolerated the procedure well. Scope In: 3:00:34 PM Scope Out: 3:07:46 PM Total Procedure Duration Time 0 hours 7 minutes 12 seconds Findings: The examined esophagus was normal. No gross lesions were noted in the stomach. One oozing cratered duodenal ulcer with a visible vessel was found in the duodenal bulb and in the first portion of the duodenum. The lesion was 30 mm in largest dimension. Coagulation for hemostasis using argon plasma at 0.3 liters/minute and 20 garcia was successful. Estimated blood loss was minimal. Patient has elements of gastric outlet obstruction due to the position of the large duodenal ulcer. Impression: - Normal esophagus. - No gross lesions in the stomach. - Oozing duodenal ulcer with a visible vessel. Treated with argon plasma coagulation (APC). - No specimens collected. - Moderate gastric outlet obstruction Recommendation: - Return patient to [facility] for [facility] care. - Full liquid diet today. - Use sucralfate tablets 1 gram PO QID for 3 months. - Patient may need a duodenal stent - Continue present medications. Procedure Code(s): --- Professional --- 23949, Small intestinal endoscopy, enteroscopy beyond second portion of duodenum, not including ileum; with control of bleeding (eg, injection, bipolar cautery, unipolar cautery, laser, heater probe, stapler, plasma evp general counsel) CPT copyright 2021 [employer]. All rights reserved. The codes documented in this report are preliminary and upon loom blower review may be revised to meet current compliance requirements. Alan Avelar DO 10/23/2024 3:17:44 PM This report has been signed electronically. Number of Addenda: 0 Note Initiated On: 10/23/2024 2:41 PM
--- NOTE | 2024-10-23 15:18 | OP.CCLET_ITS ---
10/23/2024 No Primary Care Physician Re : Upper GI end[facility] This procedure was performed on Wednesday, October 23, 2024. My impressions and recommendations are as follows: Impressions : - Normal esophagus. - No gross lesions in the stomach. - Oozing duodenal ulcer with a visible vessel. Treated with argon plasma coagulation (APC). - No specimens collected. - Moderate gastric outlet obstruction Recommendations : - Return patient to [facility] for ongoing care. - Full liquid diet today. - Use sucralfate tablets 1 gram PO QID for 3 months. - Patient may need a duodenal stent - Continue present medications. My findings are described in the full procedure note, which is enclosed. If I can be of further assistance, please feel free to contact me at . Sincerely, Alan Avelar, 10/23/2024 3:17:44 PM This report has been signed electronically.
[2024-10-23 15:33] LABS: Red Blood Cells-Urine 0-5 SEEN /hpf (0-5); Squamous Epithelial Cells - UA 0-5 SEEN /hpf (0-5); White Blood Cells 0-5 SEEN /hpf (0-5)
--- NOTE | 2024-10-23 16:12 | SUR.PHASEI ---
1545: Patient became nauseous upon rolling out of pacu on bed to transfer to ICU 201. REentered PACU to treat nausea; 4mg zofran and 10mg reglan per orders from anesthesia. Quease-Ez provided. cool cloth provided and fan. Emesis ~20mL. Full Liquid Diet today per order from Dr. Avelar. VSS. Unit of blood to be transfused on icu. Patient aware of large stomach ulcer and APC treatment and possible need for stent. New meds ordered by Dr. Avelar, carafate and protonix.
--- NOTE | 2024-10-23 16:14 | PCM.POST.ANE ---
Anesthesia: Postop Eval I Current Vital Signs Temperature: 97.1 F Pulse Rate: 74 Blood Pressure: 120/73 Respiratory Rate: 16 Pulse Ox: 97 Oxygen Delivery Method: Room Air Assessment Airway patent: Yes Spontaneous unlabored respirations: Yes Mental status: Awake nausea: No Vomiting: No Anesthesia Complication: No Fluid Hydration Crystalloid volume administer (ml): 200 Total IV fluid infused: 200 Progress Note Anesthesia document: Postop Eval 1 completed: Yes
--- NOTE | 2024-10-23 16:32 | POSTOPAN2_ITS ---
Anesthesia Postop Eval I Sum Postop Eval Completion status Anesthesia document: Postop Eval 1 completed: Yes Anesthesia Postop Eval I Summary Anesthesia Postop Eval I Summary: Anesthesia Postop Eval I: Assessment Summary Airway patent Yes 10/23/24 16:14 PATIENT INFORMATION COORDINATOR.ACAR Spontaneous unlabored Yes 10/23/24 16:14 PATIENT INFORMATION COORDINATOR.ACAR respirations Mental status Awake 10/23/24 16:14 PATIENT INFORMATION COORDINATOR.ACAR nausea No 10/23/24 16:14 PATIENT INFORMATION COORDINATOR.ACAR Vomiting No 10/23/24 16:14 PATIENT INFORMATION COORDINATOR.ACAR Anesthesia Postop Eval I: Fluid Summary Crystalloid volume administer 200 10/23/24 16:14 PATIENT INFORMATION COORDINATOR.ACAR (ml) Colloids volume administered ( ml) Blood Product volume administered (ml) Total IV fluid infused 200 10/23/24 16:14 PATIENT INFORMATION COORDINATOR.ACAR Anesthesia Postop Eval I: Summary Notes Anesthesia Complication No 10/23/24 16:14 PATIENT INFORMATION COORDINATOR.ACAR Anesthesia Complication Comment: Post-operative progress note Anesthesia: Postop Eval II Evaluation Mental status: Awake and Calm Pain Level: 2 nausea: Yes Vomiting: No Progress Note Post-operative progress note: mild nausea, improved
--- NOTE | 2024-10-23 16:32 | PCM.POSTANE2 ---
Anesthesia Postop Eval I Sum Postop Eval Completion status Anesthesia document: Postop Eval 1 completed: Yes Anesthesia Postop Eval I Summary Anesthesia Postop Eval I Summary: Anesthesia Postop Eval I: Assessment Summary Airway patent Yes 10/23/24 16:14 RAKE OPERATOR.ACAR Spontaneous unlabored Yes 10/23/24 16:14 RAKE OPERATOR.ACAR respirations Mental status Awake 10/23/24 16:14 RAKE OPERATOR.ACAR nausea No 10/23/24 16:14 RAKE OPERATOR.ACAR Vomiting No 10/23/24 16:14 RAKE OPERATOR.ACAR Anesthesia Postop Eval I: Fluid Summary Crystalloid volume administer 200 10/23/24 16:14 RAKE OPERATOR.ACAR (ml) Colloids volume administered ( ml) Blood Product volume administered (ml) Total IV fluid infused 200 10/23/24 16:14 RAKE OPERATOR.ACAR Anesthesia Postop Eval I: Summary Notes Anesthesia Complication No 10/23/24 16:14 RAKE OPERATOR.ACAR Anesthesia Complication Comment: Post-operative progress note Anesthesia: Postop Eval II Evaluation Mental status: Awake and Calm Pain Level: 2 nausea: Yes Vomiting: No Progress Note Post-operative progress note: mild nausea, improved
[2024-10-23 17:10] LABS: Osmolality, Urine 631 mOsm/KG
[2024-10-23] MEDS: Morphine 2 MG/ML Syringe IV (17:31)
[2024-10-23 21:20] LABS: Hematocrit 22.9 % (40-54); Hemoglobin 7.4 g/dL (13.0-16.5)
[2024-10-24] VITALS (24 sets, daily range): BP systolic 90–151; BP diastolic 41–82; PULSE 53–89; RESP 13–21; TEMP 36.6–36.7; O2SAT 92–97; BMI 27.8
[2024-10-24] MEDS: 0.9% Saline Lock 10 ML Syringe IV (00:18)
[2024-10-24] MEDS: 0.9% Normal Saline (1000mL) 1,000 ML 150 ML IV ×4 (00:18→22:57)
[2024-10-24] MEDS: Pantoprazole Sodium 80 MG in 0.9% Normal Saline (100mL Bag) 80 ML 10 MG CONT INF ×2 (03:56→13:37)
[2024-10-24 06:55] LABS: Absolute Lymphocyte Count 1.27 X10^3/uL (0.83-4.51); Absolute Neutrophil Count 4.5 X10^3/uL (2.0-7.7); Basophil# 0.03 X10^3/uL; Basophil% 0.5 % (0-1); Eosinophil# 0.26 X10^3/uL; Eosinophils% 3.9 % (0-5); Hematocrit 22.6 % (40-54); Hemoglobin 7.2 g/dL (13.0-16.5); Lymphocyte # 1.27 X10^3/ul (0.83-4.51); Lymphocyte % 19.1 % (19-41); Mean Corp Hgb Conc 31.9 g/dL (32-36); Mean Corpuscular Hgb 24.8 pg (27.0-32.0); Mean Corpuscular Volume 77.9 fL (80-94); Mean Platelet Vol. 9.1 fl (6.2-12.0); NRBC Flagged by Analyzer 0 % (0-5); Neutrophil # 4.46 X10^3/uL (2.7-7.7); Platelet Count 240 K/mm3 (150-450); RBC Distribution Width CV 19.5 % (11.6-14.6); RBC Distribution Width SD 55.1 fl (35.1-43.9); White Blood Count 6.7 K/mm3 (4.4-11.0)
[2024-10-24 07:15] LABS: Phosphorus 2.9 mg/dL (2.7-4.5)
[2024-10-24 07:22] LABS: ALB/GLOB Ratio 1.3 RATIO (0.9-2.4); AST(SGOT) 15 U/L (<=37); Alanine Aminotransfer ALT/SGPT 8 U/L (<=46); Alkaline Phosphatase 37 U/L (40-129); Anion Gap 10 (5-15); BUN 11 mg/dL (4-19); BUN/Creat Ratio 15.1 RATIO (10-20); Calcium,Total 7.9 mg/dL (7.6-11.0); Carbon Dioxide 19.8 mmol/L (21.0-32.0); Chloride 110 mmol/L (98-108); Creatinine, Serum 0.76 mg/dL (0.70-1.20); EST Glomerular Filtration Rate 105 (>60); Estimated Creatinine Clearance 112.79 ml/min (50-250); Globulin 2.3 g/dL (2.2-4.2); Glucose 82 mg/dL (70-99); Potassium 3.3 mmol/L (3.3-5.1); Protein, Total 5.3 g/dL (5.9-8.4); Sodium Level 140 mmol/L (133-145); Total Bilirubin 0.88 mg/dL (0.00-1.30)
[2024-10-24 07:29] LABS: Absolute Lymphocyte Count 0.65 X10^3/uL (0.83-4.51); Absolute Neutrophil Count 19.6 X10^3/uL (2.0-7.7); Basophil# 0.03 X10^3/uL; Basophil% 0.1 % (0-1); Hematocrit 31.1 % (40-54); Hemoglobin 9.7 g/dL (13.0-16.5); Lymphocyte # 0.65 X10^3/ul (0.83-4.51); Mean Corp Hgb Conc 31.2 g/dL (32-36); Mean Corpuscular Hgb 29.1 pg (27.0-32.0); Mean Corpuscular Volume 93.4 fL (80-94); Mean Platelet Vol. 10.9 fl (6.2-12.0); Monocyte# 1.38 X10^3/uL; Monocyte% 6.3 % (0-10); NRBC Flagged by Analyzer 0 % (0-5); Neutrophil # 19.59 X10^3/uL (2.7-7.7); Platelet Count 248 K/mm3 (150-450); RBC Distribution Width CV 13.1 % (11.6-14.6); RBC Distribution Width SD 45.1 fl (35.1-43.9); Red Blood Count 3.33 M/mm3 (4.6-6.2); White Blood Count 21.8 K/mm3 (4.4-11.0)
--- NOTE | 2024-10-24 07:30 | PCM.PN.HOSP ---
Reason for Visit Reason for Visit: Diagnoses Acute posthemorrhagic anemia (10/22/24) Obesity, class 1 (10/22/24) Acidosis, unspecified (10/22/24) Hypokalemia (10/22/24) Gastrointestinal hemorrhage, unspecified (10/22/24) Unspecified hydronephrosis (10/22/24) Calculus of ureter (10/22/24) Hypovolemic shock (10/22/24) Personal history of other diseases of the digestive system (10/22/24) Patient's noncompliance with other medical treatment and regimen due to unspecified reason (10/22/24) Objective Data Objective Data Vital Signs: Vital Signs Temp Pulse Resp BP Pulse Ox O2 Del Method O2 Flow Rate 98.0 F 56 L 14 110/68 96 Room Air 3 10/24/24 00:00 10/24/24 07:00 10/24/24 07:00 10/24/24 07:00 10/24/24 07:00 10/24/24 07:00 10/23/24 15:30 Oxygen Flow Rate (L/min) 3 Oxygen Delivery Method Room Air Weight: 183 lb 10.321 oz Body Mass Index (BMI) 27.8 Intake & Output: Intake and Output for Last 24 Hours 10/22/24 10/23/24 10/24/24 23:59 23:59 23:59 Intake Total 1135 / 1135 3738 / 3738 2096.5 / 2096.5 Output Total 1420 / 1420 525 / 525 Balance 1135 / 1135 2318 / 2318 1571.5 / 1571.5 Medical Nutrition Assessment Dietitian: Malnutrition Criteria Met Start: 10/23/24 09:51 Freq: Status: Active Protocol: Document 10/23/24 09:51 SLA (Rec: 10/23/24 09:51 SLA [id number]) Nutrition Malnutrition Evidence of Yes Malnutrition Exists Malnutrition (severe Acute Illness/Injury ): Evidenced By Suboptimal Energy Intake (Severe),Weight Loss (Severe) Clinical Problem Acute Disease or Injury Related Malnutrition Etiology related to GI dysfunction 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 as evidenced by po intake <75% of est nutritional needs and 5.1% unintended wt loss x ~ 1 month Status Active Problem Recommendation Dietitian As medically able, rec RENNY to Transitional w/ goal of Recommendations/ Regular Changes As medically able, rec Ensure Plus High Protein 4x/day w/ medpass Continue to follow and monitor for changes in pt nutritional status Lab / Micro Data 10/24/24 07:15 10/24/24 06:45 Labs: Laboratory Results - last 24 hr 10/22/24 20:08: Crossmatch See Detail 10/22/24 20:08: Crossmatch See Detail 10/22/24 20:24: Crossmatch See Detail 10/23/24 06:39: Platelet Estimate A, Anisocytosis 1+, Tear Drop Cells 1+, Ovalocytes 1+, Acanthocytes (Spur) 1+, Sodium 140, Potassium 3.7, Chloride 112 H, Carbon Dioxide 20.1 L, Anion Gap 7, BUN 25 H, Creatinine 0.88, Estim Creat Clear Calc 89.60, Est GFR (MDRD) Non-Af 100, BUN/Creatinine Ratio 28.6 H, Glucose 90, Hemoglobin A1c 5.3, Calcium 7.9, Phosphorus 3.4, Total Bilirubin 0.74, AST 15, ALT 8, Alkaline Phosphatase 36 L, Total Protein 5.2 L, Albumin 3.1 L, Globulin 2.2, Albumin/Globulin Ratio 1.4 10/23/24 13:22: Urine Color Straw, Urine Clarity Clear, Urine pH 6.0, Ur Specific [place] 1.015, Urine Protein 30 H, Urine Glucose (UA) Normal, Urine Ketones 15 H, Urine Occult Blood 10 H, Urine Nitrite Negative, Urine Bilirubin Negative, Urine Urobilinogen Normal, Ur Leukocyte Esterase Negative, Urine RBC 0-5 SEEN, Urine WBC 0-5 SEEN, Ur Squamous Epith Cells 0-5 SEEN, Urine Bacteria 0 SEEN, Urine Mucus 0 SEEN, Urine Osmolality 631, U Random Total Protein 13.7 H, Ur Random Sodium 78, Urine Creatinine 92.10, Protein/Creatinin Ratio 149, Urine Potassium 34.9, Urine Chloride 94 10/23/24 21:08: Hgb 7.4 L, Hct 22.9 L 10/24/24 06:45: WBC 6.7, RBC 2.90 L, Hgb 7.2 L, Hct 22.6 L, MCV 77.9 L, MCH 24.8 L, MCHC 31.9 L, RDW Std Deviation 55.1 H, RDW Coeff of Gerry 19.5 H, Plt Count 240, MPV 9.1, Immature Gran % (Auto) 0.500, Neut % (Auto) 67.0, Lymph % (Auto) 19.1, [place] % (Auto) 9.0, Eos % (Auto) 3.9, Baso % (Auto) 0.5, Absolute Neuts (auto) 4.5, Absolute Lymphs (auto) 1.27, Nucleated RBC % 0, Sodium 140, Potassium 3.3, Chloride 110 H, Carbon Dioxide 19.8 L, Anion Gap 10, BUN 11, Creatinine 0.76, Estim Creat Clear Calc 112.79, Est GFR (MDRD) Non-Af 105, BUN/Creatinine Ratio 15.1, Glucose 82, Calcium 7.9, Phosphorus 2.9, Total Bilirubin 0.88, AST 15, ALT 8, Alkaline Phosphatase 37 L, Total Protein 5.3 L, Albumin 3.0 L, Globulin 2.3, Albumin/Globulin Ratio 1.3 Micro: Microbiology 10/22/24 16:30 Stool Stool Lactoferrin - Final 10/22/24 16:30 Stool Enteric Bacteriology - Final Physical Exam Narrative Patient had EGD which shows duodenal ulcer with visible vessel. Discussed with Dr. Avelar. No fever. Physical exam Physical exam General: Alert, Oriented x3, Cooperative HEENT: Atraumatic, PERRLA, EOMI, Normocephalic. Oral: No Gingival or Mucosal Lesions/ Ulcerations Neck: Supple, No JVD, Negative Carotid Bruits Chest wall/Lungs: Air entry diminished in bilateral lung bases. No crepitation/rhonchi Cardiovascular: Regular rate and rhythm, Normal S1,S2, No M/G/R Abdomen: Bowel Sounds Present, Soft, mild tenderness to epigastric region, Non-Distended : No dysuria. No renal angle tenderness. No suprapubic tenderness. Extremities: No edema, Capillary Refill Less than 3 Seconds Skin: No rashes, No breakdown Musculoskeletal: No Tenderness to Palpation of Joints or Extremities Neurological: Cranial nerves II-XII grossly intact, DTR 2+/4. No acute focal neurological deficit. Psych/Mental Status: Normal Affect, Appropriate. Assessment & Plan Assessment/Plan (1) UGIB (upper gastrointestinal bleed): (2) ABLA (acute blood loss anemia): (3) Hypovolemic shock: (4) Acute hypokalemia: (5) Lactic acidosis: (6) History of duodenal ulcer: (7) Medically noncompliant: (8) Calculus of ureterovesical junction (UVJ): (9) Hydroureteronephrosis: (10) Obesity (BMI 30.0-34.9): PLAN: Plan 59-year-old gentleman came to ED with vomiting blood intermittently for last 3 weeks, came to ED with near syncopal episode. Patient's gave propranolol. Mild epigastric discomfort when he tries to eat. His stool was black/melena. No fever. History of bleeding ulcer in April. Was in [place] approximately weeks ago Patient has been having nasal/sinus drainage for last 3 to 4 weeks. During [place] visit he denies any significant abnormal event like food poisoning, fever or GI bleed. Complain of melena yesterday and probably coffee-ground drainage but other than it was whitish in last 3 to 4 weeks. Denies hematuria or burning pain in urine/increased frequency or urgency. Has history of kidney stone and passed a stone in the past. No fever. Denies alcohol, NSAID or steroid use. 1. Upper GI bleed with melena and mild hematemesis: In April 2024 when he was transferred to [facility] He had endoscopy and patient told. Duodenal ulcer. IV PPI. GI consulted. Patient is being admitted in ICU. EGD on 10/23/2024 Impressions : - Normal esophagus. - No gross lesions in the stomach. - Oozing duodenal ulcer with a visible vessel. Treated with argon plasma coagulation (APC). - No specimens collected. - Moderate gastric outlet obstruction Recommendations : - [facility] to [facility] care. - Full liquid diet today. - Use sucralfate tablets 1 gram PO QID for 3 months. - Patient may need a duodenal stent - Continue present medications. 10/24: Recommendation as above. Stool for H. pylori antigen ordered as there was no biopsy taken during EGD. Continue sucralfate and PPI IV. Patient has leukocytosis but no fever or worsening of condition in fact he is feeling much better. Patient empirically on IV ceftriaxone. 2. Acute severe blood loss anemia, iron deficiency anemia and hypokalemia: Patient BP was low at 97/59 in ED, heart rate 106 per blood. H&H 4.9/17.3%. Platelet count 419K. Patient was ordered 3 units of PRBC. Lactic acidosis 3.5 probably from hypoperfusion. Hypokalemia. Electrolytes are getting replaced 10/24: hemoglobin repeat was 7.2 which improved to 9.7 which might be error. IV iron infusion ordered. Repeat H&H at 12 noon. 3. Recent international travel to [place] with subsequent epigastric pain: CT abdomen shows small hiatus hernia and moderate colonic stool otherwise unremarkable. 4. History of GI bleed due to PUD suspected to be related to NSAID overuse 5. Right UVJ obstructing calculus with mild right hydroureteronephrosis and multiple bilateral other nonobstructing calculi, largest 7 mm: No left hydronephrosis. UB unremarkable discussed with Dr. Brown. Urologist consulted he thinks he will pass it. Right UVJ stone reported 2 mm. 6. Obesity; BMI of 30 KG per square meter- Weight loss will be recommended. 7. DVT prophylaxis - SCD's bilateral. Pharmacological prophylaxis contraindicated. Clinical Impression(s) from Imaging Studies Chest X-Ray 10/22/24 20:43 IMPRESSION: No acute cardiopulmonary abnormality. Reading Location: [id number] Abdomen/Pelvis CT 10/22/24 22:00 IMPRESSION: 2 mm right UVJ obstructing calculus with mild hydroureteronephrosis and mild delayed nephrogram. Several other nonobstructing calculi, bilaterally, measuring up to 7 mm. Hepatic steatosis without focal lesion. Reading Location: [facility] Charges/Coding Visit Charges Inpatient E&M: 52302 Subs Hosp L2
[2024-10-24] MEDS: Sodium Ferric Gluconat/Sucrose 250 MG in 0.9% Normal Saline (250mL Bag) 250 ML 135 MG IV (08:12)
[2024-10-24] MEDS: Ceftriaxone 1 GM/50 ML BAG IV (08:52)
[2024-10-24 12:09] LABS: Hematocrit 24.4 % (40-54); Hemoglobin 7.8 g/dL (13.0-16.5)
[2024-10-25] VITALS (10 sets, daily range): BP systolic 91–130; BP diastolic 58–81; PULSE 52–68; RESP 14–15; TEMP 36.7; O2SAT 91–97; BMI 27.8
[2024-10-25] MEDS: Pantoprazole Sodium 80 MG in 0.9% Normal Saline (100mL Bag) 80 ML 10 MG CONT INF (00:56)
[2024-10-25 05:09] LABS: Absolute Neutrophil Count 3.5 X10^3/uL (2.0-7.7); Basophil# 0.05 X10^3/uL; Basophil% 0.8 % (0-1); Eosinophil# 0.38 X10^3/uL; Eosinophils% 6.3 % (0-5); Hematocrit 25.3 % (40-54); Hemoglobin 8.1 g/dL (13.0-16.5); Lymphocyte % 23.3 % (19-41); Mean Corpuscular Hgb 25.2 pg (27.0-32.0); Mean Corpuscular Volume 78.6 fL (80-94); Mean Platelet Vol. 8.8 fl (6.2-12.0); Monocyte# 0.63 X10^3/uL; Monocyte% 10.5 % (0-10); NRBC Flagged by Analyzer 0 % (0-5); Neutrophil % 58.3 % (47-70); POSITIVE MORPHOLOGY YES; Platelet Count 302 K/mm3 (150-450); RBC Distribution Width CV 20.1 % (11.6-14.6); Red Blood Count 3.22 M/mm3 (4.6-6.2)
[2024-10-25 05:41] LABS: Anion Gap 10 (5-15); BUN 6 mg/dL (4-19); BUN/Creat Ratio 8.3 RATIO (10-20); Calcium,Total 8.4 mg/dL (7.6-11.0); Carbon Dioxide 21.6 mmol/L (21.0-32.0); Chloride 110 mmol/L (98-108); Creatinine, Serum 0.76 mg/dL (0.70-1.20); EST Glomerular Filtration Rate 105 (>60); Estimated Creatinine Clearance 112.79 ml/min (50-250); Glucose 84 mg/dL (70-99); Sodium Level 141 mmol/L (133-145)
[2024-10-25] MEDS: 0.9% Normal Saline (1000mL) 1,000 ML 150 ML IV (05:46)
[2024-10-25 06:28] LABS: Differential Indicated SCAN CRITERIA MET
[2024-10-25 06:32] LABS: Anisocytosis 1+; Burr Cells 1+
[2024-10-25 06:33] LABS: Ovalocyte 1+
--- NOTE | 2024-10-25 08:11 | DCINST_ITS ---
Discharge Instructions Diet Discharge Diet: Light diet - advance as tolerated, [place] diet (for 2-3 weeks, small and frequent meals) and Soft diet DC O2, CPAP, BIPAP needs Home O2 Discharge instructions: No Dressing / Incision Discharge Activity: Return to Normal Activity Weight Bearing Status: Weight bearing as tolerated Dressing / Incision Call your doctor if you observe: Fever of 101 or Higher Follow Up Care Please Follow Up With: Nick Brown MD When: IN 2 WEEKS Test Results: Test results from this visit will be discussed in further detail at your follow- up appointment, if applicable. Discharge Plan Admission Admit Date/Time: 10/22/24 22:21 Primary Reason for Your Visit: Active bleeding duodenal ulcer Attending Provider: Temo Moncada Primary Care Provider: Care Physician,No Primary Consulting Providers: Burt Hoffman; Nick Brown Discharge Orders/Prescriptions Prescriptions: New sucralfate 1 gram Tablet 1 g PO 1HR_ACHS 30 Days Qty: 120 2RF pantoprazole [Protonix] 40 mg tablet,delayed release (DR/EC) 40 mg PO BID 30 Days Qty: 60 2RF ferrous sulfate [FeroSul] 325 mg (65 mg iron) tablet 325 mg PO QODAY 30 Days Qty: 30 2RF ascorbic acid (vitamin C) 500 mg tablet 500 mg PO BID Qty: 60 2RF Discontinued pantoprazole [Protonix] 20 mg tablet,delayed release (DR/EC) 20 mg PO DAILY Referrals / Follow Up: Jake Jeronimo MD [Non-Staff] - In 1 Week Care Physician,No Primary [Primary Care Provider] - Nick Brown MD [Med Staff - Active Staff] - Within 1 Month Alan Avelar DO [Med Staff - Active Staff] - Within 1 Month Annika Garcia PA [Med Staff - Adv Practice Prof] - Within 2 Weeks Disposition Disposition (needs filled in before D/C Order can be placed): Home, Self Care
--- NOTE | 2024-10-25 08:18 | PCM.DC.SUM ---
Providers Date of Admission: 10/22/24 Primary Care Physician: Rita Primary Care Phys Consultations 10/23/24 00:14 Consult: Gastroenterology Routine Consulting Provider: [facility] Reason for Consult: UGIB with melena and hematemesis. EMERGENT Consult: No Notified: Yes Date Notified: 10/22/24 Time Notified: 22:23 Method of Notification: ED Physician Initiated 10/23/24 06:43 Consult: Urology Routine Consulting Provider: Nick Brown Reason for Consult: Right ~2mm UVJ stone with hydroureternephrosis. EMERGENT Consult: No Notified: Yes Date Notified: 10/23/24 Time Notified: 06:43 Method of Notification: Answering Service Reason For Visit: ABLA REQ XFUSION, LACTIC ACIDOSIS, HYPOKALEMIA, Diagnosis Discharge Diagnosis (1) UGIB (upper gastrointestinal bleed): Status: Acute Code(s): K92.2 - Gastrointestinal hemorrhage, unspecified (2) ABLA (acute blood loss anemia): Status: Acute Code(s): D62 - Acute posthemorrhagic anemia (3) Hypovolemic shock: Status: Acute Code(s): R57.1 - Hypovolemic shock (4) Acute hypokalemia: Status: Acute Code(s): E87.6 - Hypokalemia (5) Lactic acidosis: Status: Acute Code(s): E87.20 - Acidosis, unspecified (6) History of duodenal ulcer: Status: Acute Code(s): Z87.19 - Personal history of other diseases of the digestive system (7) Medically noncompliant: Status: Acute Code(s): Z91.199 - Patient's noncompliance with other medical treatment and regimen due to unspecified reason (8) Calculus of ureterovesical junction (UVJ): Status: Acute Code(s): N20.1 - Calculus of ureter (9) Hydroureteronephrosis: Status: Acute Code(s): N13.30 - Unspecified hydronephrosis (10) Obesity (BMI 30.0-34.9): Status: Acute Code(s): E66.811 - Obesity, class 1 Plan 59-year-old gentleman came to ED with vomiting blood intermittently for last 3 weeks, came to ED with near syncopal episode. Patient's gave propranolol. Mild epigastric discomfort when he tries to eat. His stool was black/melena. No fever. History of bleeding ulcer in April. Was in [place] approximately weeks ago Patient has been having nasal/sinus drainage for last 3 to 4 weeks. During [place] visit he denies any significant abnormal event like food poisoning, fever or GI bleed. Complain of melena yesterday and probably coffee-ground drainage but other than it was whitish in last 3 to 4 weeks. Denies hematuria or burning pain in urine/increased frequency or urgency. Has history of kidney stone and passed a stone in the past. No fever. Denies alcohol, NSAID or steroid use. 1. Upper GI bleed with melena and mild hematemesis: In April 2024 when he was transferred to [facility] He had endoscopy and patient told. Duodenal ulcer. IV PPI. GI consulted. Patient is being admitted in ICU. EGD on 10/23/2024 Impressions : - Normal esophagus. - No gross lesions in the stomach. - Oozing duodenal ulcer with a visible vessel. Treated with argon plasma coagulation (APC). - No specimens collected. - Moderate gastric outlet obstruction Recommendations : - [facility] to [facility] care. - Full liquid diet today. - Use sucralfate tablets 1 gram PO QID for 3 months. - Patient may need a duodenal stent - Continue present medications. 10/24: Recommendation as above. Stool for H. pylori antigen ordered as there was no biopsy taken during EGD. Continue sucralfate and PPI IV. Patient has leukocytosis but no fever or worsening of condition in fact he is feeling much better. Patient empirically on IV ceftriaxone. 10/25: EGD findings discussed with the patient again. Discussed about gastric outlet obstruction. No further melena or upper GI bleed. H&H better 8.1/25.3%. Leukocytosis resolved. Patient given prescription for pantoprazole 40 mg twice daily, sucralfate, ferrous sulfate and ascorbic acid. Advised follow-up in GI office in 2 weeks. H. pylori stool antigen still uncollected because patient had bowel movement. Mild hypokalemia, potassium replaced 2. Acute severe blood loss anemia, iron deficiency anemia and hypokalemia: Patient BP was low at 97/59 in ED, heart rate 106 per blood. H&H 4.9/17.3%. Platelet count 419K. Patient was ordered 3 units of PRBC. Lactic acidosis 3.5 probably from hypoperfusion. Hypokalemia. Electrolytes are getting replaced 10/24: hemoglobin repeat was 7.2 which improved to 9.7 which might be error. IV iron infusion ordered. Repeat H&H at 12 noon. 10/25: As mentioned above 3. Recent international travel to [place] with subsequent epigastric pain: CT abdomen shows small hiatus hernia and moderate colonic stool otherwise unremarkable. 4. History of GI bleed due to PUD suspected to be related to NSAID overuse 5. Right UVJ obstructing calculus with mild right hydroureteronephrosis and multiple bilateral other nonobstructing calculi, largest 7 mm: No left hydronephrosis. UB unremarkable discussed with Dr. Brown. Urologist consulted he thinks he will pass it. Right UVJ stone reported 2 mm. 10/25: Follow-up in urology office with Dr. Brown 6. Obesity; BMI of 30 KG per square meter- Weight loss will be recommended. 7. DVT prophylaxis - SCD's bilateral. Pharmacological prophylaxis contraindicated. Discharge medication reconciliation done. Discharge follow-up instructions completed. Discharge process discussed with the patient and all questions were answered to patient's satisfaction. Follow with PCP in 1 to 2 weeks Total time spent, exact 35 minutes on discharge meds reconciliation, examination, coordination of care with nurses and ancillary staff, review of imaging and blood test and discussion with the patient on follow-up instructions. Clinical Impression(s) from Imaging Studies Chest X-Ray 10/22/24 20:43 IMPRESSION: No acute cardiopulmonary abnormality. Reading Location: [id number] Abdomen/Pelvis CT 10/22/24 22:00 IMPRESSION: 2 mm right UVJ obstructing calculus with mild hydroureteronephrosis and mild delayed nephrogram. Several other nonobstructing calculi, bilaterally, measuring up to 7 mm. Hepatic steatosis without focal lesion. Reading Location: [facility] Medications at Discharge Home Medications ascorbic acid (vitamin C) 500 mg tablet 500 mg PO BID #60 tabs 10/25/24 ferrous sulfate 325 mg (65 mg iron) tablet (FeroSul) 325 mg PO QODAY 30 days #30 tabs 10/25/24 pantoprazole 40 mg tablet,delayed release (Protonix) 40 mg PO BID 30 days #60 tabs 10/25/24 sucralfate 1 gram tablet 1 g PO 1HR_ACHS 1 month #120 tabs 10/25/24 Physical Exam Narrative Patient is doing well. Has tolerated clear liquid and full liquid and currently on soft diet patient had EGD which shows duodenal ulcer with visible vessel. Discussed with Dr. Avelar. No fever. Physical exam Physical exam General: Alert, Oriented x3, Cooperative HEENT: Atraumatic, PERRLA, EOMI, Normocephalic. Oral: No Gingival or Mucosal Lesions/ Ulcerations Neck: Supple, No JVD, Negative Carotid Bruits Chest wall/Lungs: Air entry diminished in bilateral lung bases. No crepitation/rhonchi Cardiovascular: Regular rate and rhythm, Normal S1,S2, No M/G/R Abdomen: Bowel Sounds Present, Soft, mild tenderness to epigastric region, Non-Distended : No dysuria. No renal angle tenderness. No suprapubic tenderness. Extremities: No edema, Capillary Refill Less than 3 Seconds Skin: No rashes, No breakdown Musculoskeletal: No Tenderness to Palpation of Joints or Extremities Neurological: Cranial nerves II-XII grossly intact, DTR 2+/4. No acute focal neurological deficit. Psych/Mental Status: Normal Affect, Appropriate. 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 Signs/Symptoms as evidenced by po intake <75% of est nutritional needs and 5.1% unintended wt loss x ~ 1 month Status Active Problem Recommendation Dietitian As medically able, rec RENNY to Transitional w/ goal of Recommendations/ Regular Changes As medically able, rec Ensure Plus High Protein 4x/day w/ medpass Continue to follow and monitor for changes in pt nutritional status Weight / BMI Weight Weight: 184 lb 1.376 oz Body Mass Index (BMI) 27.8 ABG / Lab / Microbiology Data 10/25/24 05:00 10/25/24 05:00 Laboratory: Laboratory Results - last 24 hr 10/24/24 11:50: Hgb 7.8 L, Hct 24.4 L 10/25/24 05:00: WBC 6.0, RBC 3.22 L, Hgb 8.1 L, Hct 25.3 L, MCV 78.6 L D, MCH 25.2 L, MCHC 32.0, RDW Std Deviation 57.0 H, RDW Coeff of Gerry 20.1 H, Plt Count 302, MPV 8.8, Immature Gran % (Auto) 0.800, Neut % (Auto) 58.3, Lymph % (Auto) 23.3, Sullivan % (Auto) 10.5 H, Eos % (Auto) 6.3 H, Baso % (Auto) 0.8, Absolute Neuts (auto) 3.5, Absolute Lymphs (auto) 1.40, Nucleated RBC % 0, Anisocytosis 1+, Ovalocytes 1+, Praveen Cells 1+, Sodium 141, Potassium 3.0 L, Chloride 110 H, Carbon Dioxide 21.6, Anion Gap 10, BUN 6, Creatinine 0.76, Estim Creat Clear Calc 112.79, Est GFR (MDRD) Non-Af 105, BUN/Creatinine Ratio 8.3 L, Glucose 84, Calcium 8.4 Microbiology: Microbiology 10/22/24 16:30 Stool Stool Lactoferrin - Final 10/22/24 16:30 Stool Enteric Bacteriology - Final D/C Instructions Discharge Diet: Light diet - advance as tolerated, Myra diet (for 2-3 weeks, small and frequent meals) and Soft diet Weight Bearing Status: Weight bearing as tolerated Call your doctor if you observe: Fever of 101 or Higher DC O2, CPAP, BIPAP Needs Home O2 Discharge instructions: No Please Follow Up With: Nick Brown MD When: IN 2 WEEKS Meaningful Use Info Meaningful Use Meaningful Use Diagnoses (Choose all that apply): None applicable Ischemic Stroke Statin Dosing Therapy Reference: STATIN DOSE THERAPY REFERENCE: * Patients > 75 years receive moderate or high dose statin therapy. * Patients 75 years or YOUNGER should receive HIGH intensity statin dose unless contraindicated. You will be required to document reason for non-treatment if statin daily dose does not meet guidelines. HIGH DOSE STATIN THERAPY DAILY Atorvastatin > than or = to 40 mg Rosuvastatin > than or = to 20 mg Amlodipine + Atorvastatin > than or = to 2.5/40 mg Ezetimibe + Simvastatin 10/80 mg Simvastatin 80mg Discharge Plan Admission Admit Date/Time: 10/22/24 22:21 Primary Reason for Your Visit: Active bleeding duodenal ulcer Attending Provider: Temo Moncada Primary Care Provider: Care Physician,No Primary Consulting Providers: Burt Hoffman; Nick Brown Discharge Orders/Prescriptions Prescriptions: New sucralfate 1 gram Tablet 1 g PO 1HR_ACHS 30 Days Qty: 120 2RF pantoprazole [Protonix] 40 mg tablet,delayed release (DR/EC) 40 mg PO BID 30 Days Qty: 60 2RF ferrous sulfate [FeroSul] 325 mg (65 mg iron) tablet 325 mg PO QODAY 30 Days Qty: 30 2RF ascorbic acid (vitamin C) 500 mg tablet 500 mg PO BID Qty: 60 2RF Discontinued pantoprazole [Protonix] 20 mg tablet,delayed release (DR/EC) 20 mg PO DAILY Referrals / Follow Up: Nick Brown MD [Med Staff - Active Staff] - Within 1 Month Alan Avelar DO [Med Staff - Active Staff] - Within 1 Month Jake Jeronimo MD [Non-Staff] - In 1 Week Care Physician,No Primary [Primary Care Provider] - Annika Garcia PA [Med Staff - Adv Practice Prof] - Within 2 Weeks Disposition Disposition (needs filled in before D/C Order can be placed): Home, Self Care
[2024-10-25] MEDS: Potassium Chloride Oral Soln 20 MEQ/15 ML UDC 40 MEQ PO ×2 (09:19→10:36)
[2024-10-25] MEDS: Ceftriaxone 1 GM/50 ML BAG IV (09:20)
[2024-10-25] MEDS: Sucralfate 1 GM Tablet PO (11:12)
== END 2024-10-25 14:22 | disposition home or self-care (01) | DRG 377 ==
LOC: ED 21:38 → ICU 22:29
PROVIDERS: Internal Medicine Gastroenterology; Admitting Provider Internal Medicine; Emergency Provider Emergency Medicine; Visit Provider Internal Medicine
PROC: 0DJ08ZZ Inspection of Upper Intestinal Tract, Via Natural or Artificial Opening Endoscopic (ICD-10-PCS; CPT 43235; principal; 2024-10-23 14:55)
DX: K26.0 Acute duodenal ulcer with hemorrhage (principal); R57.1 Hypovolemic shock; E87.20 Acidosis, unspecified; N13.2 Hydronephrosis with renal and ureteral calculous obstruction; D62 Acute posthemorrhagic anemia; Z68.30 Body mass index [BMI] 30.0-30.9, adult; E87.6 Hypokalemia; Z79.2 Long term (current) use of antibiotics; E66.9 Obesity, unspecified; K92.0 Hematemesis; Z88.1 Allergy status to other antibiotic agents; Z88.8 Allergy status to other drugs, medicaments and biological substances; Z79.899 Other long term (current) drug therapy
CPT/HCPCS: 71045; 74177; 80048; 80053; 81001; 82436; 82570; 82607; 82728; 82746; 83036; 83540; 83550; 83605; 83630; 83690; 83735; 83935; 84100; 84133; 84156; 84300; 84443; 84484; 85014; 85018; 85025; 86644; 86850; 86900; 86901; 86920; 87086; 87177; 87209; 87506; 93005; 94760; 99285; C1889; P9016; Q9967; A4216; J2405; J2916

== ENCOUNTER → 2024-11-17 | Outpatient (CLI) | payer OTHER, SELFPAY ==
[2024-11-17 10:28] LABS: Absolute Lymphocyte Count 1.73 X10^3/uL (0.83-4.51); Basophil# 0.09 X10^3/uL; Basophil% 1.1 % (0-1); Eosinophil# 1.65 X10^3/uL; Eosinophils% 20.1 % (0-5); Hematocrit 34.7 % (40-54); Hemoglobin 10.6 g/dL (13.0-16.5); Immature Platelet Fraction 0.9 % (1.0-7.9); Lymphocyte # 1.73 X10^3/ul (0.83-4.51); Mean Corp Hgb Conc 30.5 g/dL (32-36); Mean Corpuscular Hgb 24.1 pg (27.0-32.0); Mean Platelet Vol. 8.8 fl (6.2-12.0); Monocyte# 0.69 X10^3/uL; Monocyte% 8.4 % (0-10); NRBC Flagged by Analyzer 0 % (0-5); Neutrophil % 48.7 % (47-70); POSITIVE MORPHOLOGY YES; Platelet Count 361 K/mm3 (150-450); RBC Distribution Width CV 20.3 % (11.6-14.6); RBC Distribution Width SD 58.2 fl (35.1-43.9); RET-HE 25.2 pg (30-35); Red Blood Count 4.39 M/mm3 (4.6-6.2); Reticulocyte Count 0.67 % (0.5-1.5); White Blood Count 8.2 K/mm3 (4.4-11.0)
[2024-11-17 10:36] LABS: Differential Indicated SCAN CRITERIA MET
[2024-11-17 11:06] LABS: Anisocytosis 2+; Differential Comment SCANNED
[2024-11-17 11:10] LABS: Ferritin 22 ng/mL (37-417); Iron 37 ug/dL (65-175); LDH 167 U/L (87-241)
[2024-11-19 15:08] LABS: Albumin 3.9 g/dL (2.9-4.4); Alpha-1-Globulins 0.2 g/dL (0.0-0.4); Alpha-2-Globulins 0.7 g/dL (0.4-1.0); Endomysial Antibody IgA Negative (Negative); Gamma Globulin 1.5 g/dL (0.4-1.8); Immunoglobulin A 220 mg/dL (90-386); Immunoglobulin G 1593 mg/dL (603-1613); Immunoglobulin M 120 mg/dL (20-172); PROEL- TOTAL PROTEIN 7.6 g/dL (6.0-8.5); t-Transglutaminase IgA <2 U/mL (0-3)
== END | disposition home or self-care (01) ==
LOC: LAB 09:31
PROVIDERS: PCP Chiropractor; Referring Provider Internal Medicine Gastroenterology; Visit Provider Internal Medicine Gastroenterology
DX: K92.2 Gastrointestinal hemorrhage, unspecified (principal)
CPT/HCPCS: 36415; 82728; 82784; 83516; 83540; 83615; 84165; 85025; 85045; 86255; 86334

== ENCOUNTER → 2025-03-01 | Outpatient (CLI) | payer OTHER, SELFPAY ==
[2025-03-01 09:55] LABS: Hematocrit 42.3 % (40-54); Hemoglobin 14.4 g/dL (13.0-16.5); Immature Granulocytes Count 0.040 X10^3/uL (0.0-0.0); Mean Corp Hgb Conc 34.0 g/dL (32-36); Mean Corpuscular Volume 85.8 fL (80-94); Mean Platelet Vol. 8.3 fl (6.2-12.0); NRBC Flagged by Analyzer 0 % (0-5); Platelet Count 276 K/mm3 (150-450); RBC Distribution Width CV 14.9 % (11.6-14.6); RBC Distribution Width SD 45.6 fl (35.1-43.9); Red Blood Count 4.93 M/mm3 (4.6-6.2); White Blood Count 10.1 K/mm3 (4.4-11.0)
[2025-03-01 10:52] LABS: Ferritin 56 ng/mL (37-417); Iron 69 ug/dL (65-175)
== END | disposition home or self-care (01) ==
PROVIDERS: PCP Chiropractor; Referring Provider Chiropractor; Visit Provider Chiropractor
DX: D50.9 Iron deficiency anemia, unspecified (principal); K26.7 Chronic duodenal ulcer without hemorrhage or perforation
CPT/HCPCS: 36415; 82728; 83540; 85025